=== PATIENT | female | born 1940 | race Caucasian/White ===

== ENCOUNTER 2020-03-27 12:40 | Day surgery (SDC) | payer MEDICARE, OTHER ==
[~2020-03-27] VITALS: Ht 167.6 cm; Wt 97.0 kg
[~2020-03-27 12:40] MED LIST: CYCL10; DICL50ER; DIPH50; GLYB5; GLYB5 PO; HYDCHL25; METF500; METF500 PO; OXYACE5T PO; PROACE100; SIMV10 PO; SIMV5; TRAN4; TRAN4 PO
[2020-03-27 14:11] LABS: BASOPHILS ABSOLUTE AUTO 0.07 K/mm3 (0.00-0.23); BASOPHILS PERCENT AUTO 1 % (0-2); EOSINOPHILS ABSOLUTE AUTO 0.42 K/mm3 (0.00-0.68); EOSINOPHILS PERCENT AUTO 5 % (0-6); Hematocrit 35.1 % (33.0-51.0); Hemoglobin 11.3 g/dL (11.5-16.0); IMMATURE GRAN ABSOLUTE AUTO 0.02 K/mm3 (0.00-0.10); IMMATURE GRAN PERCENT AUTO 0 % (0-1); LYMPHOCYTES ABSOLUTE AUTO 1.88 K/mm3 (0.84-5.20); LYMPHOCYTES PERCENT AUTO 22 % (21-46); MONOCYTES ABSOLUTE AUTO 0.69 K/mm3 (0.16-1.47); MONOCYTES PERCENT AUTO 8 % (4-13); Mean Corpuscular HGB 30.2 pg (26.0-34.0); Mean Corpuscular HGB Conc 32.2 g/dL (31.5-36.5); Mean Corpuscular Volume 94 fL (80-100); Mean Platelet Volume 9.1 fL (9.1-12.4); NEUTROPHILS ABSOLUTE AUTO 5.54 K/mm3 (1.96-9.15); NEUTROPHILS PERCENT AUTO 64 % (41-73); Platelet Count 244 K/mm3 (150-400); RDW Coefficient Variation 13.5 % (11.7-14.2); RDW Standard Deviation 46.9 fL (35.1-46.3); Red Blood Cell Count 3.74 M/mm3 (3.80-5.20); White Blood Cell Count 8.62 K/mm3 (4.00-11.30)
[2020-03-27] MEDS ORDERED: AMLO10 PO (14:22)
[2020-03-27 14:23] LABS: Bun/Creatinine Ratio 10.2 (12.0-20.0); Calcium, Blood 8.7 mg/dL (8.5-10.1); Creatinine, Blood 3.62 mg/dL (0.40-1.00); International Normalized Ratio 1.05; Prothrombin Time Results 11.2 Sec (9.7-11.5)
[2020-03-27] MEDS ORDERED: ZYRTEC10 M2 PO (14:23)
[2020-03-27] MEDS ORDERED: CLOP75 PO (14:23)
[2020-03-27] MEDS ORDERED: DOXA2 PO (14:23)
[2020-03-27] MEDS ORDERED: CYCL10 PO (14:24)
[2020-03-27] MEDS ORDERED: FOLI400 PO (14:24)
[2020-03-27] MEDS ORDERED: FURO40 PO (14:25)
[2020-03-27] MEDS ORDERED: Pravachol40 MG PO (14:27)
[2020-03-27] MEDS ORDERED: ZOLP5 PO (14:28)
[2020-03-27] MEDS ORDERED: ALBU90OI INH (14:28)
[2020-03-27] MEDS ORDERED: OMEP20ER PO (14:29)
[2020-03-27] MEDS ORDERED: SERT50 PO (14:29)
[2020-03-27] MEDS ORDERED: ONDA4 PO (14:29)
[2020-03-27] MEDS ORDERED: METO50ER PO (14:30)
--- NOTE | 2020-03-27 18:02 | NUR ---
1800 PATIENT RETURNED FROM THE [facility] S/P THROMBECTOMY TO THE LEFT ARM FISTULA. POSITION THRILL AND BRUIT TO THE LEFT ARM. CLOTH DOT TO THE ACCESS SITES. NO BLEEDING NOTED. NO PAIN NOTED FROM THE PATIENT. AT THE BEDSIDE AND TRAY SET UP FOR MEAL. PATIENT FEEDING SELF.
--- NOTE | 2020-03-27 18:59 | NUR ---
1845 PATIENT AWAKE AND UP TO DRESS FOR DISCHARGE. REVIEWED DISCHARGE INSTRUCTIONS WITH PATIENT AND HER . ALL QUESTIONS ANSWERED. VVS. PIV REMOVED FROM CHACHA RIGHT AC AND PRESSURE DRESSING APPLIED. IV CATHETER TIP INTACT. GATHERED ALL BELONGINGS. REMOVED PURSE STRING SUTURES FROM THE AV FISTULA SHEATH SITES AND NO BLEEDING NOTED. CLOT DOT DRESSINGS APPLIED AND PATIENT UNDERSTANDS TO MONITOR FOR BLEEDING AND HOLD MANUAL PRESSURE IF BLEEDING OCCURS. DISCHARGED VIA WHEEL CHAIR TO HOME WITH .
== END 2020-03-27 23:40 | disposition home or self-care (01) ==
LOC: MHTC 12:40
PROVIDERS: Radiology Diagnostic Radiology
DX: T82.868A Thrombosis due to vascular prosthetic devices, implants and grafts, initial encounter (principal); Y83.2 Surgical operation with anastomosis, bypass or graft as the cause of abnormal reaction of the patient, or of later complication, without mention of misadventure at the time of the procedure; E11.22 Type 2 diabetes mellitus with diabetic chronic kidney disease; I12.0 Hypertensive chronic kidney disease with stage 5 chronic kidney disease or end stage renal disease; N18.6 End stage renal disease; Z99.2 Dependence on renal dialysis; Z79.4 Long term (current) use of insulin; G20 Parkinson's disease; Z88.0 Allergy status to penicillin; Z88.8 Allergy status to other drugs, medicaments and biological substances; Z79.82 Long term (current) use of aspirin; Z79.899 Other long term (current) drug therapy; Z79.02 Long term (current) use of antithrombotics/antiplatelets
CPT/HCPCS: 36905; 76937; 80048; 85025; 85610; 99152; 99153; C1725; C1757; C1769; C1887; C1894; J1644; J2250; J2997; J3010; J7030; Q9967

== ENCOUNTER 2020-09-23 06:29 | Day surgery (SDC) | payer MEDICARE, OTHER ==
[~2020-09-23] VITALS: Ht 167.6 cm; Wt 90.9 kg
[~2020-09-23 06:29] MED LIST changes: +ALBU90OI INH; +AMLO10 PO; +CLOP75 PO; +CYCL10 PO; +DOXA2 PO; +FOLI400 PO; +FURO40 PO; +METO50ER PO; +OMEP20ER PO; +ONDA4 PO; +Pravachol40 MG PO; +SERT50 PO; +ZOLP5 PO; +ZYRTEC10 M2 PO
[2020-09-23] MEDS ORDERED: HYDROCODONE-AC1 EAC7 PO (07:47)
[2020-09-23] MEDS ORDERED: LEVEMIR100 UNIT/1 SC (07:48)
[2020-09-23] MEDS ORDERED: MECL12.5 PO (07:48)
[2020-09-23] MEDS ORDERED: MELATONIN1010 PO (07:49)
[2020-09-23] MEDS ORDERED: VITAMIN B122500 MC1 PO (07:50)
[2020-09-23] MEDS ORDERED: SODIUM BICARBO325 M1 PO (07:51)
--- NOTE | 2020-09-23 11:33 | NUR ---
LEFT ARM FISTULAGRAM SITES SOFT WITH NO HEMATOMA AND NO PULSATILE BLEEDING AND INTACT DRESSINGS. PT DRINKING PEPSI; CALL LIGHT IN REACH.
--- NOTE | 2020-09-23 12:02 | NUR ---
PURSE STRING SUTURES REMOVED FROM LEFT FISTULA SITE, NO BLEEDING NOTED. CLOTH DOT DRESSING PLACED,
--- NOTE | 2020-09-23 12:18 | NUR ---
DISCHARGE INSTRUCTIONS REVIEWED WITH PT, VERBALIZES UNDERSTANDING OF INSTRUCTIONS. SALINE LOCK REMOVED WITHOUT DIFFICULTY, CATHETER INTACT. PT TO PRIVATE VEHICLE PER W/C.
[2020-10-15] MEDS ORDERED: CALC.25 PO (14:18)
== END 2020-09-23 12:15 | disposition home or self-care (01) ==
LOC: MHTC 06:29
DX: N18.6 End stage renal disease (principal); T82.590A Other mechanical complication of surgically created arteriovenous fistula, initial encounter; T82.868A Thrombosis due to vascular prosthetic devices, implants and grafts, initial encounter; T82.858A Stenosis of other vascular prosthetic devices, implants and grafts, initial encounter; Y83.8 Other surgical procedures as the cause of abnormal reaction of the patient, or of later complication, without mention of misadventure at the time of the procedure; Z99.2 Dependence on renal dialysis; Z88.1 Allergy status to other antibiotic agents; Z88.0 Allergy status to penicillin
CPT/HCPCS: 36905; 76937; 99152; 99153; C1725; C1757; C1769; C1887; C1894; J1644; J2250; J3010; J7030; J7040; Q9967

== ENCOUNTER 2020-09-30 11:08 | Day surgery (SDC) | payer MEDICARE, OTHER ==
[~2020-09-30] VITALS: Ht 165.1 cm; Wt 99.0 kg
[~2020-09-30 11:08] MED LIST changes: +HYDROCODONE-AC1 EAC7 PO; +LEVEMIR100 UNIT/1 SC; +MECL12.5 PO; +MELATONIN1010 PO; +SODIUM BICARBO325 M1 PO; +VITAMIN B122500 MC1 PO
--- NOTE | 2020-09-30 14:38 | NUR ---
PATIENT AWAKE, ABLE TO SIT ON THE SIDE OF THE BED AND EAT LUNCH TRAY. TOLERATED WELL. VVS. NO PAIN NOTED. PATIENT U PAND DRESSED SELF. ALL BELONGINGS GATHERED. PATIENT PIV REMOVED FROM THE RIGHT FOREARM. LEFT ARM FISTULA WITH CLOTH DOTS ON SITES TIMES TWO. THRILL/BRUIT NOTED AND NO BLEEDING NOTED.
[2020-10-15] MEDS ORDERED: CALC.25 PO (14:18)
== END 2020-09-30 15:00 | disposition home or self-care (01) ==
LOC: MHTC 11:08
DX: I12.0 Hypertensive chronic kidney disease with stage 5 chronic kidney disease or end stage renal disease (principal); E11.22 Type 2 diabetes mellitus with diabetic chronic kidney disease; N18.6 End stage renal disease; T82.590A Other mechanical complication of surgically created arteriovenous fistula, initial encounter; T82.868A Thrombosis due to vascular prosthetic devices, implants and grafts, initial encounter; T82.858A Stenosis of other vascular prosthetic devices, implants and grafts, initial encounter; G89.4 Chronic pain syndrome; Y83.8 Other surgical procedures as the cause of abnormal reaction of the patient, or of later complication, without mention of misadventure at the time of the procedure; Z20.822 Contact with and (suspected) exposure to COVID-19; Z99.2 Dependence on renal dialysis; Z88.1 Allergy status to other antibiotic agents; Z88.0 Allergy status to penicillin; Z20.828 Contact with and (suspected) exposure to other viral communicable diseases; Z87.891 Personal history of nicotine dependence
CPT/HCPCS: 0241U; 36415; 36906; 76937; 80048; 85007; 85027; 85610; 99152; 99153; C1725; C1757; C1769; C1876; C1894; J1644; J2250; J3010; J7030; Q9967

== ENCOUNTER 2020-10-16 12:41 | Day surgery (SDC) | payer MEDICARE, OTHER ==
[~2020-10-16] VITALS: Ht 167.6 cm; Wt 90.9 kg
[~2020-10-16 12:41] MED LIST changes: +CALC.25 PO
--- NOTE | 2020-10-16 17:51 | NUR ---
patient arrived to [facility] recovery room. awake and speaking to over the phone. cloth dressings intact to 2 sites on left arm. permacath in place to right upper chest wall dressing D&I. site soft and nontender.
--- NOTE | 2020-10-16 19:07 | NUR ---
PT UP TO BATHROOM. BOTH FISTULAGRAM SITES AND PERMCATH SITES STABLE.
--- NOTE | 2020-10-16 19:18 | NUR ---
PT PURSE STRING SUTURES OUT AND SALINE LOCK REMOVED WITH CATHETER INTACT.
--- NOTE | 2020-10-16 19:24 | NUR ---
DISCHARGE GONE OVER WITH PT, PT IN AGREEMENT WITH PLAN OF CARE. PT TO PRIVATE VEHICLE PER W/C WITH ONE STAFF.
== END 2020-10-16 22:45 | disposition home or self-care (01) ==
LOC: MHTC 12:41
DX: T82.590A Other mechanical complication of surgically created arteriovenous fistula, initial encounter (principal); E11.22 Type 2 diabetes mellitus with diabetic chronic kidney disease; I12.0 Hypertensive chronic kidney disease with stage 5 chronic kidney disease or end stage renal disease; N18.6 End stage renal disease; G20 Parkinson's disease; Z79.4 Long term (current) use of insulin; Z88.0 Allergy status to penicillin; Z88.1 Allergy status to other antibiotic agents; Z88.8 Allergy status to other drugs, medicaments and biological substances
CPT/HCPCS: 36558; 36906; 76937; 99152; 99153; C1725; C1750; C1769; C1876; C1887; C1894; J1644; J2250; J3010; J7030; J7040; J7050; Q9967

== ENCOUNTER 2021-05-29 06:39 | Day surgery (SDC) | payer MEDICARE, OTHER ==
[~2021-05-29] VITALS: Ht 167.6 cm; Wt 96.0 kg
[~2021-05-29 06:39] MED LIST changes: +ANECREAM515 GM TOP; +BICARSIM FORTE125 MG PO
== END 2021-05-29 15:33 | disposition home or self-care (01) ==
LOC: MHTC 06:39
DX: T82.868A Thrombosis due to vascular prosthetic devices, implants and grafts, initial encounter (principal); Y83.2 Surgical operation with anastomosis, bypass or graft as the cause of abnormal reaction of the patient, or of later complication, without mention of misadventure at the time of the procedure; I12.0 Hypertensive chronic kidney disease with stage 5 chronic kidney disease or end stage renal disease; E11.22 Type 2 diabetes mellitus with diabetic chronic kidney disease; N18.6 End stage renal disease; Z99.2 Dependence on renal dialysis; Z87.891 Personal history of nicotine dependence; Z79.02 Long term (current) use of antithrombotics/antiplatelets; Z79.4 Long term (current) use of insulin
CPT/HCPCS: 76937; 82947; 99152; 99153; C1725; C1757; C1769; C1885; C1887; C1894; C2623; J1644; J2250; J2997; J3010; J7030; J7040; J7050; Q9967

== ENCOUNTER 2021-07-03 10:43 | Observation (INO) | payer MEDICARE, OTHER ==
[~2021-07-03] VITALS: Ht 167.6 cm; Wt 98.0 kg
[2021-07-04 05:45] LABS: Bun/Creatinine Ratio 9.5 (12.0-20.0); Calcium, Blood 8.7 mg/dL (8.5-10.1); Creatinine, Blood 4.96 mg/dL (0.40-1.00); Potassium, Blood 4.4 mmol/L (3.5-5.5)
--- NOTE | 2021-07-04 05:45 | NUR ---
SHIFT SUMMARY PATIENT ALERT AND ORIENTED X2. HAD NO COMPLAINTS OF PAIN OR SHORTNESS OF BREATH. NO ACUTE ISSUES NOTED OVERNIGHT. BED IN LOWEST POSITION WITH WHEELS LOCKED AND ALARM ON. CALL LIGHT WITHIN REACH. REPORT GIVEN TO ONCOMING RN.
--- NOTE | 2021-07-04 05:48 | NUR ---
SHIFT SUMMARY PATIENT ARRIVED TO ROOM 304 VIA STRETCHER AT 1900. SHE IS ALERT AND ORIENTED. HAD NO COMPLAINTS OF PAIN OR SHORTNESS OF BREATH. ABLE TO AMBULATE AROUND HER ROOM INDEPENDENTLY. ONLY SCANT BLEEDING NOTED FROM SURGICAL SITE. NO ACUTE ISSUES NOTED OVERNIGHT. CALL LIGHT WITHIN REACH. REPORT GIVEN TO ONCOMING RN.
--- NOTE | 2021-07-04 09:57 | NUR ---
DISCHARGE SUMMARY PT DISCHARGE THIS SHIFT AT 0945. PT SEEN BY DR. LECHUGA THIS AM PRIOR TO DC. PT AAOX4, ABLE TO MAKE NEEDS KNOWN, INDEPENDENT IN ROOM. NO C/O PAIN OR ANY DISCOMFORT PRIOR TO DC, NO ISSUES OR CONCERNS NOTED FROM PT. PT VERBALIZED UNDERSTANDING OF DISCHARGE ORDERS. PT REPORTED THAT SHE IS GOING TO [facility] AFTER DISCHARGE FOR DIALYSIS. PT TO BE TRANSPORTED BY HER . DISCHARGE PAPERWORK GIVEN TO PT UPON DC.
== END 2021-07-04 09:45 | disposition home or self-care (01) ==
LOC: MHTC 10:43 → EDSTATUS 11:16 → RMSDCBED 19:33 → MEDS 19:34
PROVIDERS: ADMIT Internal Medicine
DX: T82.868A Thrombosis due to vascular prosthetic devices, implants and grafts, initial encounter (principal); I12.0 Hypertensive chronic kidney disease with stage 5 chronic kidney disease or end stage renal disease; N18.6 End stage renal disease; E11.22 Type 2 diabetes mellitus with diabetic chronic kidney disease; G20 Parkinson's disease; Z87.891 Personal history of nicotine dependence; Z88.0 Allergy status to penicillin; Z88.8 Allergy status to other drugs, medicaments and biological substances; Z79.4 Long term (current) use of insulin; Z79.899 Other long term (current) drug therapy
CPT/HCPCS: 36415; 76937; 80048; 82947; 94760; 99152; 99153; A9270; C1725; C1753; C1757; C1769; C1887; C1894; J1644; J1815; J2250; J2997; J3010; J7030; J7040; J7050; Q9967

== ENCOUNTER 2021-07-28 11:09 | Day surgery (SDC) | payer MEDICARE, OTHER ==
[~2021-07-28] VITALS: Ht 142.2 cm; Wt 97.7 kg
[2021-07-28 11:52] LABS: BASOPHILS ABSOLUTE AUTO 0.07 K/mm3 (0.00-0.23); BASOPHILS PERCENT AUTO 1 % (0-2); EOSINOPHILS ABSOLUTE AUTO 0.26 K/mm3 (0.00-0.68); EOSINOPHILS PERCENT AUTO 3 % (0-6); Hematocrit 29.6 % (33.0-51.0); Hemoglobin 9.9 g/dL (11.5-16.0); IMMATURE GRAN ABSOLUTE AUTO 0.04 K/mm3 (0.00-0.10); IMMATURE GRAN PERCENT AUTO 1 % (0-1); LYMPHOCYTES ABSOLUTE AUTO 2.05 K/mm3 (0.84-5.20); LYMPHOCYTES PERCENT AUTO 24 % (21-46); MONOCYTES ABSOLUTE AUTO 0.65 K/mm3 (0.16-1.47); MONOCYTES PERCENT AUTO 8 % (4-13); Mean Corpuscular HGB 30.1 pg (26.0-34.0); Mean Corpuscular HGB Conc 33.4 g/dL (31.5-36.5); Mean Corpuscular Volume 90 fL (80-100); Mean Platelet Volume 8.7 fL (9.1-12.4); NEUTROPHILS ABSOLUTE AUTO 5.39 K/mm3 (1.96-9.15); NEUTROPHILS PERCENT AUTO 64 % (41-73); Platelet Count 232 K/mm3 (150-400); RDW Coefficient Variation 12.4 % (11.7-14.2); RDW Standard Deviation 41.1 fL (35.1-46.3); Red Blood Cell Count 3.29 M/mm3 (3.80-5.20); White Blood Cell Count 8.46 K/mm3 (4.00-11.30)
--- NOTE | 2021-07-28 12:00 | NUR ---
FEMORAL SITE UPON CHECKING RIGHT FEMORAL SITE-BLEEDING NOTED-NO HEMATOMA. MANUAL PRESURE HELD FOR ABOUT 5 MIN BY DAVID Kulkarni RN. SHLOMO PATCH AND FEM-STOP REAPLIED. CDI-NO HEMATOMA NOTED.
[2021-07-28 12:05] LABS: International Normalized Ratio 1.04; Prothrombin Time Results 10.9 Sec (9.7-11.5)
[2021-07-28] MEDS ORDERED: Calcium Carbon500 MG PO (12:07)
[2021-07-28] MEDS ORDERED: VITAMIN D5000 UNIT PO (12:08)
[2021-07-28 12:13] LABS: Bun/Creatinine Ratio 12.4 (12.0-20.0); Calcium, Blood 8.9 mg/dL (8.5-10.1); Creatinine, Blood 5.1 mg/dL (0.40-1.00); Potassium, Blood 4.6 mmol/L (3.5-5.5)
--- NOTE | 2021-07-28 14:55 | NUR ---
PT TO RECOVERY ROOM POST PROCEDURE. PT AWAKE AND CONVERSING APPROPRIATELY; DENIES PAIN POST PROCEDURE. MONITOR SB/SR 50-60'S, B/P 153/72, AFEBRILE, SPO2 94% RA. L ARM FISTULA NO SWELLING/HEMATOMA, TENSION SUTURES X [address] WITH TEGADERM DRSG.
--- NOTE | 2021-07-28 16:25 | NUR ---
PROXIMAL RETENTION SUTURES REMOVED, BLOOD SQUIRTING FROM SITE, PRESSURE DRSG APPLIED WITH GAUZE AND COBAN, MANUAL PRESSURE FOR 15 MIN, PT DENIES PAIN OR FEELING LIGHTHEADED. DR LECHUGA NOTIFIED-WILL COME EVALUATE PT.
--- NOTE | 2021-07-28 16:45 | NUR ---
DISTAL RETENTION SUTURES REMOVED WITHOUT ISSUE. ATTEMPTED TO REPLACE PRESSURE DRSG, BUT SITE CONTINUES TO SQUIRT WHEN UNCOVERED; PRESSURE DRSG REAPPLIED AND ADDITIONAL 15 MIN OF MANUAL PRESSURE HELD. PT CONTINUES TO DENY PAIN OR LIGHTHEADINESS. SHE STATES " THIS HAPPENS ONCE A WEEK AT DIALYSIS".
--- NOTE | 2021-07-28 17:03 | NUR ---
REPORT GIVEN TO QUINTEN WHITE; ALL QUESTIONS ANSWERED.
--- NOTE | 2021-07-28 18:51 | NUR ---
DR LECHUGA HERE RE-SUTURED PROXIMAL SITE WITH VICRYL SUTURE PER STERILE TECHNIQUE. LIGHT PRESSURE DRESSING PLACED OVER THE TOP OF SITE TO PREVENT FURTHER BLEEDING. PT TO BE PLACED IN HOUSE OVER NIGHT. UPON PT GETTING UP AND CHANGED INTO NEW GOWN DISTAL SITE BEGAN BLEEDING. DR LECHUGA NOTIFIED AND DISTAL SITE RE-SUTURED PER STERILE TECHNIQUE WITH CLOTH DOT BEING PLACED OVER SITE AFTER COMPLETION. PT CLEANED UP AND NEW GOWN PLACED. PCU NOTIFIED OF PT ARRIVAL. FULL REPORT GIVEN TO NIOCLA SHIPLEY PCU. NO FURTHER QUESTIONS AND BOTH SITES STABLE UPON ARRIVAL TO AND MY EXIT FROM PCU.
[2021-07-29 04:10] LABS: Bun/Creatinine Ratio 12.8 (12.0-20.0); Calcium, Blood 8.4 mg/dL (8.5-10.1); Creatinine, Blood 5.09 mg/dL (0.40-1.00)
--- NOTE | 2021-07-29 05:29 | NUR ---
SHIFT SUMMARY PATIENT ALERT AND ORIENTED T/O SHIFT. VSS. PATIENT REMAINS ON ROOM AIR AND DENIES CHEST PAIN/PRESSURE. INDEPEDENT IN ROOM. USES CALL LIGHT APPROPRIATELY. FISTULA PLACED IN GARETH YESTERDAY, PRESSURE DRESSING REMAINS INTACT WITH NO BLEEDING OVER NIGHT. BRUIT AUSCULTATED. MINIMAL SWELLING AROUND SITE. PLAN IS FOR DIALYSIS IN HOUSE TODAY AND PATIENT TO BE DISCHARGED. WILL REPORT TO DAY SHIFT RN.
--- NOTE | 2021-07-29 07:55 | NUR ---
Pt is awake, but falling asleep quickly in between conversation. ORiented, appropriate in conversation. Vital signs stable. Fistula is wrapped left upper arm, in coban which is clean, dry and intact. Pt has no complaints of pain/discomfort and no needs or concerns vocalized at this time. Gave pt message that dialysis is planned for 9 am today. She expressed surprise that it would be so early.
--- NOTE | 2021-07-29 09:50 | NUR ---
pt is in dialysis at this time; Checked with traffic inspector and scheduled meds were then administered to the patient at this time.
[2021-07-29] MEDS ORDERED: PANT40 PO (13:08)
--- NOTE | 2021-07-29 13:51 | NUR ---
After completing dialysis, pt's fistula on the left arm is noted dressed and clean, dry and intact. She is ready to go home at 1330. She called her to pick her up. discharge instructions were reviewed with her, including discontinuation of omeprazole and new prescription ([facility]ed to [facility]) for pantoprazole. She said that she has a dialysis appointment as outpatient. She was taken out in wheelchair by HENRI rOtiz to waiting private vehicle driven by her .
== END 2021-07-29 13:39 | disposition home or self-care (01) ==
LOC: PCU 11:09 → MHTC 11:09 → PCU 18:37 → MHTC 07-29 13:39
PROVIDERS: Internal Medicine
DX: T82.868A Thrombosis due to vascular prosthetic devices, implants and grafts, initial encounter (principal); I12.0 Hypertensive chronic kidney disease with stage 5 chronic kidney disease or end stage renal disease; E11.22 Type 2 diabetes mellitus with diabetic chronic kidney disease; N18.6 End stage renal disease; E87.1 Hypo-osmolality and hyponatremia; E86.9 Volume depletion, unspecified; D64.9 Anemia, unspecified; Z86.718 Personal history of other venous thrombosis and embolism; G20 Parkinson's disease; N25.81 Secondary hyperparathyroidism of renal origin; Z99.2 Dependence on renal dialysis; Z79.4 Long term (current) use of insulin; Y71.8 Miscellaneous cardiovascular devices associated with adverse incidents, not elsewhere classified; Y83.2 Surgical operation with anastomosis, bypass or graft as the cause of abnormal reaction of the patient, or of later complication, without mention of misadventure at the time of the procedure; Z88.0 Allergy status to penicillin; Z88.8 Allergy status to other drugs, medicaments and biological substances; Z87.891 Personal history of nicotine dependence
CPT/HCPCS: 36415; 36905; 76937; 80048; 82947; 85025; 85610; 99152; 99153; A9270; C1725; C1757; C1769; C1887; C1894; G0257; J1644; J2250; J2997; J3010; J7030; J7040; Q9967

== ENCOUNTER 2021-08-21 23:26 | Inpatient (IN) | payer MEDICARE, OTHER ==
[~2021-08-21] VITALS: Ht 167.6 cm; Wt 96.0 kg
[~2021-08-21 23:26] MED LIST changes: +Calcium Carbon500 MG PO; +PANT40 PO; +VITAMIN D32000 UNI1 PO
[2021-08-21 23:41] LABS: BASOPHILS ABSOLUTE AUTO 0.03 K/mm3 (0.00-0.23); BASOPHILS PERCENT AUTO 0 % (0-2); EOSINOPHILS ABSOLUTE AUTO 0.16 K/mm3 (0.00-0.68); EOSINOPHILS PERCENT AUTO 2 % (0-6); Hematocrit 26.6 % (33.0-51.0); Hemoglobin 8.9 g/dL (11.5-16.0); IMMATURE GRAN ABSOLUTE AUTO 0.04 K/mm3 (0.00-0.10); IMMATURE GRAN PERCENT AUTO 1 % (0-1); LYMPHOCYTES ABSOLUTE AUTO 1.43 K/mm3 (0.84-5.20); LYMPHOCYTES PERCENT AUTO 17 % (21-46); MONOCYTES ABSOLUTE AUTO 0.67 K/mm3 (0.16-1.47); MONOCYTES PERCENT AUTO 8 % (4-13); Mean Corpuscular HGB 30.1 pg (26.0-34.0); Mean Corpuscular HGB Conc 33.5 g/dL (31.5-36.5); Mean Corpuscular Volume 90 fL (80-100); Mean Platelet Volume 8.9 fL (9.1-12.4); NEUTROPHILS ABSOLUTE AUTO 6.35 K/mm3 (1.96-9.15); NEUTROPHILS PERCENT AUTO 73 % (41-73); Platelet Count 203 K/mm3 (150-400); RDW Coefficient Variation 12.6 % (11.7-14.2); RDW Standard Deviation 41.4 fL (35.1-46.3); Red Blood Cell Count 2.96 M/mm3 (3.80-5.20); White Blood Cell Count 8.68 K/mm3 (4.00-11.30)
[2021-08-21 23:56] LABS: Anion Gap 10 mmol/L (6-16); Blood Urea Nitrogen 42 mg/dL (8-24); Bun/Creatinine Ratio 10.4 (12.0-20.0); CO2, Blood 24 mmol/L (21-32); Calcium, Blood 8.8 mg/dL (8.5-10.1); Chloride, Blood 99 mmol/L (98-108); Creatinine, Blood 4.02 mg/dL (0.40-1.00); Glomerular Filtration Rate 11 (60-); Glucose, Blood 208 mg/dL (70-99); Potassium, Blood 3.6 mmol/L (3.5-5.5); Sodium, Blood 133 mmol/L (136-145)
[2021-08-22 00:43] LABS: Troponin I <0.015 ng/mL (0.000-0.040)
[2021-08-22 05:14] LABS: Base Excess Venous -6.8 mmol/L; Bicarbonate Venous 19.3 mmol/L (24.0-30.0); PCO2 Venous 34.2 mmHg (38-42); PO2 Venous 138 mmHg (38-42); pH Blood Venous 7.35 (7.34-7.37)
[2021-08-22 05:34] LABS: Hematocrit 25.9 % (33.0-51.0); Hemoglobin 8.4 g/dL (11.5-16.0); Mean Corpuscular HGB 29.7 pg (26.0-34.0); Mean Corpuscular HGB Conc 32.4 g/dL (31.5-36.5); Mean Corpuscular Volume 92 fL (80-100); Mean Platelet Volume 9.3 fL (9.1-12.4); Platelet Count 181 K/mm3 (150-400); RDW Coefficient Variation 12.6 % (11.7-14.2); RDW Standard Deviation 41.8 fL (35.1-46.3); Red Blood Cell Count 2.83 M/mm3 (3.80-5.20)
[2021-08-22 05:53] LABS: Albumin, Blood 3.5 g/dL (3.4-5.0); Anion Gap 16 mmol/L (6-16); Blood Urea Nitrogen 45 mg/dL (8-24); Bun/Creatinine Ratio 10.8 (12.0-20.0); CO2, Blood 18 mmol/L (21-32); Calcium, Blood 8.6 mg/dL (8.5-10.1); Chloride, Blood 97 mmol/L (98-108); Creatinine, Blood 4.17 mg/dL (0.40-1.00); Glomerular Filtration Rate 10 (60-); Glucose, Blood 379 mg/dL (70-99); Phosphorus, Blood 4.4 mg/dL (2.5-4.9); Potassium, Blood 3.8 mmol/L (3.5-5.5); Sodium, Blood 131 mmol/L (136-145)
[2021-08-22 05:55] LABS: BAND PERCENT MAN 6 % (0-8); BASOPHILS ABSOLUTE MAN 0.08 K/mm3 (0.00-0.23); BASOPHILS PERCENT MAN 1 % (0-2); EOSINOPHILS PERCENT MAN 0 % (0-6); LYMPHOCYTES ABSOLUTE MAN 0.16 K/mm3 (0.84-5.20); LYMPHOCYTES PERCENT MAN 2 % (21-46); MONOCYTES ABSOLUTE MAN 0.16 K/mm3 (0.16-1.47); MONOCYTES PERCENT MAN 2 % (4-13); NEUTROPHILS ABSOLUTE MAN 7.98 K/mm3 (1.96-9.15); SEG NEUTROPHILS PERCENT MAN 89 % (41-73); TOTAL CELLS COUNTED 100
[2021-08-22 09:00] LABS: Anti-Xa UFH, PHA Monitoring <0.10 IU/mL; International Normalized Ratio 1.09; Prothrombin Time Results 11.4 Sec (9.7-11.5)
--- NOTE | 2021-08-22 10:47 | NUR ---
HEPARIN INFUSING THIS RN WENT DOWN TO DIALYSIS AND STARTED THE HEPERIN INFUSING AT 15U/KG/HR AND BOLUS OF 4,500. PATIENT IS A/OX4. VSS. AWAITING FOR PATIENT TO ARRIVE TO UNIT ONCE DONE IN DIALYSIS.
--- NOTE | 2021-08-22 10:49 | NUR ---
CBG THIS RN TOOK PATIENT CBG WITH THE MACHINE IT WAS 318, THE RESULT HAS NOT COME THROUGH YET AND WHEN THIS RN WAS ACCEPTING IT THE CBG MACHINE WENT BLUE AND THEN WENT BACK TO THE WELCOME PAGE. THIS RN WANTED TO MAKE NOTE OF THAT OCCURENCE AND THE CBG LEVEL.
--- NOTE | 2021-08-22 13:00 | NUR ---
ARRIVAL TO PCU PATIENT ARRIVED TO PCU BY PCU BED AT 1225. PATIENT IS ALERT AND ORIENTATED X4. VSS. TELE SR 90. PATIENT REPORTS NO CHEST PAIN/PRESSURE. PATIENT REPORTS SHORTNESS OF BREATH WITH EXERTION. PATIENT REPORTS NO HEADACHE OR NUMBNESS OR TINGLING. PATIENT REPORTS NO CHEST PAIN SINCE LAST EVENING. PATIENT TROP WAS ELEVATED AT 7.78 MD CAYDEN HAILE AND THIS RN CALLED IN A AUTOMOTIVE REPAIR TECHNICIAN CONSULT. MD NAVAS MADE AWARE, AND DUE TO PATIENT NOT ACTIVELY HAVING CHEST PAIN AND HEPERAIN DRIP INFUSING, WE ARE AWAITING FOR THE ECHO RESULTS. HEPERAIN INFUSING AT 15U/KG/HR. PATIENT ATE LUNCH. PATIENT IS SITTING IN BED WITH CALL LIGHT WITHIN REACH AND BED IN LOWEST POSITION. SEE SHIFT ASSESSMENT FOR ASSESSMENT DETAILS. WILL CONTNUE TO MONITOR AND PROVIDE CARE.
--- NOTE | 2021-08-22 17:16 | NUR ---
SHIFT SUMMARY PATIENT A/OX4. VSS. SPO2 >90% ON 3L NC. TELE SR. PATIENT REPORTS NO CHEST PAIN AT THIS TIME. PATIENT LATEST TROP WAS 8.6 AND THIS RN NOTIFED MD NAVAS, AND DOCUMENTED IN THE CRITICAL VALUE NOTIFATION SECTION. CALL LIGHT WITHIN REACH. NO ACUTE CHANGES. WILL CONTNUE TO MONITOR AND PROVIDE CARE UNTIL HAND OFF WITH NEXT SHIFT
[2021-08-23 03:39] LABS: Hematocrit 25.7 % (33.0-51.0); Hemoglobin 8.4 g/dL (11.5-16.0); Mean Corpuscular HGB 29.9 pg (26.0-34.0); Mean Corpuscular HGB Conc 32.7 g/dL (31.5-36.5); Mean Corpuscular Volume 92 fL (80-100); Mean Platelet Volume 9.2 fL (9.1-12.4); Platelet Count 209 K/mm3 (150-400); RDW Coefficient Variation 12.8 % (11.7-14.2); RDW Standard Deviation 42.3 fL (35.1-46.3); Red Blood Cell Count 2.81 M/mm3 (3.80-5.20); White Blood Cell Count 17.22 K/mm3 (4.00-11.30)
[2021-08-23 04:17] LABS: Bun/Creatinine Ratio 12.9 (12.0-20.0); Calcium, Blood 9.2 mg/dL (8.5-10.1); Creatinine, Blood 3.1 mg/dL (0.40-1.00)
--- NOTE | 2021-08-23 05:33 | NUR ---
SHIFT SUMMARY NO ACUTE EVENTS THIS SHIFT. PT ALERT AND ORIENTED X4. C/O 8/10 BACK PAIN AND WRIST CRAMPING. MEDICATED PER EMAR. PT UNPLEASANT WHEN SHE FEELS SHE ISN'T RECEIVING HER PAIN MEDICATIONS ON TIME. OTHERWISE PLEASANT AND COOPERATIVE. BP STABLE. HR NSR 70-80'S. ON 3L NC MAINTAINING SATS OVER 96%. HIGH CBGS>350 THROUGHOUT DAY AND EVENING. PROVIDER AWARE AND PT SWITCHED TO AC/HS AND MEDIUM SLIDING SCALE. PT NPO AFTER MIDNIGHT FOR POSSIBLE AM ANGIO. HEPARIN GTT INFUSING. TROP OF 10.0 IN MORNING DRAW, UP FROM 8.6. PT DENIES CP THROUGHOUT NIGHT. PT IN BED SLEEPING WITH CALL ALARM AT SIDE. WILL CONTINUE TO MONITOR UNTIL REPOT GIVEN TO DAYSHIFT RN
[2021-08-23 12:22] LABS: Influenza A, PCR NEGATIVE (NEGATIVE); Influenza B, PCR NEGATIVE (NEGATIVE); Resp Syncytial Virus, PCR NEGATIVE (NEGATIVE)
[2021-08-23 12:50] LABS: SARS-Cov-2 (COVID-19) PCR, MMC POSITIVE (NEGATIVE)
--- NOTE | 2021-08-23 18:23 | NUR ---
TENTATIVE ANGIO TOMORROW. HEPARIN GTT CONTINUED. HD COMPLETED- TOLERATED WELL. FREQUENT ROUNDS TO ENSURE PT SAFETY. ENCOURAGED FREQUENT REPOSITIONING TO PREVENT PRESSURE ULCERS, PT VERBALIZED UNDERSTANDING. PT IN NO APPARENT DISTRESS. WILL CONTINUE TO MONITOR UNTIL TRANSFER OF CARE TO ONCOMING RN.
--- NOTE | 2021-08-24 07:33 | NUR ---
SHIFT SUMMARY PT ALERT AND ORIENTED X4. ON 3L NC MAINTAINING SATS OVER 92%. BP STABLE. HR NSR. HEPARIN GTT INFUSING. HEPARIN LEVELS LOW IN MORNING LABS, POSSIBLY DUE TO DISTAL OCCLUSIONS. BOLUS GIVEN AND FOREARM IV ACCESS OBTAINED FOR HEPARIN GTT. PT NPO SINCE MIDNIGHT FOR POSSIBLE AM ANGIO. INDEPENDENT TO BATHROOM FOR ADLS. IN BED SLEEPING WITH CALL ALARM AT SIDE
[2021-08-24 14:28] LABS: BASOPHILS ABSOLUTE AUTO 0.03 K/mm3 (0.00-0.23); BASOPHILS PERCENT AUTO 0 % (0-2); EOSINOPHILS ABSOLUTE AUTO 0.01 K/mm3 (0.00-0.68); EOSINOPHILS PERCENT AUTO 0 % (0-6); Hematocrit 24.5 % (33.0-51.0); Hemoglobin 7.9 g/dL (11.5-16.0); IMMATURE GRAN ABSOLUTE AUTO 0.02 K/mm3 (0.00-0.10); IMMATURE GRAN PERCENT AUTO 0 % (0-1); LYMPHOCYTES ABSOLUTE AUTO 1.48 K/mm3 (0.84-5.20); LYMPHOCYTES PERCENT AUTO 21 % (21-46); MONOCYTES ABSOLUTE AUTO 0.63 K/mm3 (0.16-1.47); MONOCYTES PERCENT AUTO 9 % (4-13); Mean Corpuscular HGB 30.2 pg (26.0-34.0); Mean Corpuscular HGB Conc 32.2 g/dL (31.5-36.5); Mean Corpuscular Volume 94 fL (80-100); Mean Platelet Volume 9.7 fL (9.1-12.4); NEUTROPHILS ABSOLUTE AUTO 4.85 K/mm3 (1.96-9.15); NEUTROPHILS PERCENT AUTO 69 % (41-73); Platelet Count 154 K/mm3 (150-400); RDW Coefficient Variation 12.8 % (11.7-14.2); RDW Standard Deviation 44.4 fL (35.1-46.3); Red Blood Cell Count 2.62 M/mm3 (3.80-5.20); White Blood Cell Count 7.02 K/mm3 (4.00-11.30)
[2021-08-24 14:44] LABS: Anion Gap 10 mmol/L (6-16); Blood Urea Nitrogen 53 mg/dL (8-24); Bun/Creatinine Ratio 13.2 (12.0-20.0); CO2, Blood 23 mmol/L (21-32); Calcium, Blood 8.2 mg/dL (8.5-10.1); Chloride, Blood 96 mmol/L (98-108); Creatinine, Blood 4.02 mg/dL (0.40-1.00); Glomerular Filtration Rate 11 (60-); Glucose, Blood 212 mg/dL (70-99); Phosphorus, Blood 3.2 mg/dL (2.5-4.9); Sodium, Blood 129 mmol/L (136-145)
--- NOTE | 2021-08-24 17:00 | NUR ---
END OF SHIFT: PATIENT HAD AN ANGIO TODAY, HEPARIN WAS D/C AT THAT TIME, PLAVIX GIVEN BEFORE TRANSPORT TO AGRONOMY LOCATION MANAGER, ADMINISTERED REST OF MEDS UPON RETURN, 0 STENTS WERE PLACED DUE TO LEFT MAIN ARTERY CLOT REQUIRING CABG. PATIENT WAS ON 1-2L VIA ID, DENIED ANY CHEST PAIN. AFTER ANGIO LABS WERE DRAWN AND CONTACTED DR. NESS, DIALYSIS WAS NEEDED DUE TO ANGIO CONTRAST. 2.6L PULLED AFTER 2 HOURS PATIENT WAS TRANSPORTED BY [facility] VIA GURNEY ON O2 AND HEPARIN DRIP STILL RUNNING, 14U AT 21 ML 75KG DOSING WEIGHT. BLOOD SUGAR DID NOT REQUIRE ANY COVERAGE. RRADIAL SITE WAS SLOWLY LET OUT AND CDI WITH TAGADERM IN PLACE, ALONG WITH ARM BOARD. NO FURTHER QUESTIONS COMMENTS OR CONCERNS, WILL CONTINUE TO MONITOR.
== END 2021-08-24 18:10 | disposition short-term general hospital (02) | DRG 280 ==
LOC: ER 23:26 → ERHOLD 08-22 04:18 → PCU 08-22 04:18
PROVIDERS: Emergency Medicine; Family Medicine; Internal Medicine; Internal Medicine Cardiovascular Disease; Internal Medicine Nephrology; ADMIT Internal Medicine
PROC: 8E0ZXY6 Isolation (ICD-10-PCS; 2021-08-22)
PROC: B2111ZZ Fluoroscopy of Multiple Coronary Arteries using Low Osmolar Contrast (ICD-10-PCS; principal; 2021-08-24)
DX: I21.4 Non-ST elevation (NSTEMI) myocardial infarction (principal); J96.01 Acute respiratory failure with hypoxia; N18.6 End stage renal disease; U07.1 COVID-19; J44.1 Chronic obstructive pulmonary disease with (acute) exacerbation; J81.1 Chronic pulmonary edema; E11.22 Type 2 diabetes mellitus with diabetic chronic kidney disease; Z99.2 Dependence on renal dialysis; K59.09 Other constipation; Z88.8 Allergy status to other drugs, medicaments and biological substances; Z88.1 Allergy status to other antibiotic agents; Z88.0 Allergy status to penicillin; Z86.73 Personal history of transient ischemic attack (TIA), and cerebral infarction without residual deficits; Z90.710 Acquired absence of both cervix and uterus; Z98.890 Other specified postprocedural states
CPT/HCPCS: 0241U; 36415; 71045; 71275; 76937; 80048; 80069; 82803; 82947; 83735; 84484; 85025; 85027; 85347; 85520; 85610; 85730; 93005; 93010; 93306; 93454; 94644; 94760; 96374-59; 96375; 99152; 99285-25; A9270; C1769; C1894; J0881; J1644; J1815; J1940; J2250; J2270; J2405; J2930; J3010; J7030; J7050; Q9967

== ENCOUNTER 2021-10-06 17:38 | Emergency (ER) | payer MEDICARE, OTHER ==
[~2021-10-06] VITALS: Ht 167.6 cm; Wt 88.9 kg
== END 2021-10-06 19:43 | disposition home or self-care (01) ==
LOC: ER 17:38
DX: S50.11XA Contusion of right forearm, initial encounter (principal); E11.9 Type 2 diabetes mellitus without complications; I10 Essential (primary) hypertension; E78.00 Pure hypercholesterolemia, unspecified; Z87.891 Personal history of nicotine dependence; Z88.0 Allergy status to penicillin; Z88.1 Allergy status to other antibiotic agents; Z88.8 Allergy status to other drugs, medicaments and biological substances; Z79.4 Long term (current) use of insulin; Z79.899 Other long term (current) drug therapy; W01.0XXA Fall on same level from slipping, tripping and stumbling without subsequent striking against object, initial encounter
CPT/HCPCS: 73090

== ENCOUNTER → 2021-12-17 | Outpatient (CLI) | payer MEDICARE, OTHER | END | disposition home or self-care (01) | LOC: LAB SHORT 11:26 | DX: Z48.817 Encounter for surgical aftercare following surgery on the skin and subcutaneous tissue (principal); L08.9 Local infection of the skin and subcutaneous tissue, unspecified | CPT/HCPCS: 87070; 87077; 87186; 87205 ==

== ENCOUNTER 2022-01-26 09:58 | Inpatient (IN) | payer MEDICARE, OTHER ==
[~2022-01-26] VITALS: Ht 167.6 cm; Wt 97.0 kg
[2022-01-26 10:43] LABS: BASOPHILS ABSOLUTE AUTO 0.09 K/mm3 (0.00-0.23); BASOPHILS PERCENT AUTO 1 % (0-2); EOSINOPHILS ABSOLUTE AUTO 0.47 K/mm3 (0.00-0.68); EOSINOPHILS PERCENT AUTO 3 % (0-6); Hematocrit 31.8 % (33.0-51.0); Hemoglobin 10.9 g/dL (11.5-16.0); IMMATURE GRAN ABSOLUTE AUTO 0.06 K/mm3 (0.00-0.10); IMMATURE GRAN PERCENT AUTO 0 % (0-1); LYMPHOCYTES ABSOLUTE AUTO 3.26 K/mm3 (0.84-5.20); LYMPHOCYTES PERCENT AUTO 24 % (21-46); MONOCYTES PERCENT AUTO 8 % (4-13); Mean Corpuscular HGB 29.9 pg (26.0-34.0); Mean Corpuscular HGB Conc 34.3 g/dL (31.5-36.5); Mean Corpuscular Volume 87 fL (80-100); Mean Platelet Volume 9.2 fL (9.1-12.4); NEUTROPHILS ABSOLUTE AUTO 8.71 K/mm3 (1.96-9.15); NEUTROPHILS PERCENT AUTO 64 % (41-73); Platelet Count 268 K/mm3 (150-400); RDW Coefficient Variation 12.7 % (11.7-14.2); RDW Standard Deviation 40.6 fL (35.1-46.3); Red Blood Cell Count 3.65 M/mm3 (3.80-5.20); White Blood Cell Count 13.69 K/mm3 (4.00-11.30)
[2022-01-26] MEDS ORDERED: Aspir 8181 MG PO (10:47)
[2022-01-26] MEDS ORDERED: NITR.4SL SL (10:47)
[2022-01-26] MEDS ORDERED: TICA90TA PO (10:48)
[2022-01-26 10:50] LABS: International Normalized Ratio 0.98; Prothrombin Time Results 10.3 Sec (9.7-11.5)
[2022-01-26] MEDS ORDERED: MECL12.5 PO (10:51)
[2022-01-26 10:57] LABS: Albumin, Blood 3.7 g/dL (3.4-5.0); Albumin/Globulin Ratio 1.2 (0.8-1.8); Bilirubin, Total 0.5 mg/dL (0.1-1.0); Bun/Creatinine Ratio 11.7 (12.0-20.0); Calcium, Blood 9.1 mg/dL (8.5-10.1); Creatinine, Blood 3.93 mg/dL (0.40-1.00); Potassium, Blood 4.2 mmol/L (3.5-5.5); Total Protein, Blood 6.7 g/dL (6.4-8.2)
[2022-01-26 11:53] LABS: Influenza A, PCR NEGATIVE (NEGATIVE); Influenza B, PCR NEGATIVE (NEGATIVE); Resp Syncytial Virus, PCR NEGATIVE (NEGATIVE); SARS-Cov-2 (COVID-19) PCR, MMC NEGATIVE (NEGATIVE)
[2022-01-26 17:08] LABS: Hematocrit 32.6 % (33.0-51.0); Hemoglobin 11.2 g/dL (11.5-16.0)
--- NOTE | 2022-01-26 19:39 | NUR ---
CARE ASSUMPTION: PATIENT RESTING IN BED, A&O X4. CHECKED HEMATOMA WITH OFF-GOING RN. DR. EPSTEIN CAME IN AND ALSO ASSESSED SITE. PLAN IS NPO AT BREAKFAST, KEEP ARM WRAPPED IN HOWARD BANDAGE, AND Q4 NEURO CHECKS ON LEFT HAND. PATIENT PLEASANT AND INDEPENDENT IN ROOM. BED LOW WITH CALL LIGHT IN REACH.
--- NOTE | 2022-01-26 19:53 | NUR ---
END OF SHIFT: PATIENT HAS NO CHANGE FROM SHIFT ASSESSMENT. PATIENT HAS BEEN IMPROVING, GARETH HAS NO FURTHER SPREADING, PATIENT WITH DECREASED PAIN. PATIENT ABLE TO EAT UNTIL AFTER BREAKFAST THAN NPO PER DR. WEISS. PATIENT HAS BEEN AFEBRILE, DENIES CHEST PAIN, SOB, OR EXERTIONAL SOB. Q4 NEURO CHECKS ON LEFT HAND ALL UNREMARKABLE AND CONSISTENTLY STRONG PULSE AND NORMAL ROM FOR PATIENT. PATIENT PLEASANT ALERT AND ORIENTED, DR. EPSTEIN ,DR. PAL, DR. CRESPO, AND DR. WEISS ALL HAVE BEEN CONSULTED FOR THIS PATIENT,
[2022-01-27 04:28] LABS: Hematocrit 29.2 % (33.0-51.0); Hemoglobin 9.5 g/dL (11.5-16.0); Mean Corpuscular HGB 29.3 pg (26.0-34.0); Mean Corpuscular HGB Conc 32.5 g/dL (31.5-36.5); Mean Corpuscular Volume 90 fL (80-100); Mean Platelet Volume 9.6 fL (9.1-12.4); Platelet Count 237 K/mm3 (150-400); RDW Coefficient Variation 12.8 % (11.7-14.2); RDW Standard Deviation 42.6 fL (35.1-46.3); Red Blood Cell Count 3.24 M/mm3 (3.80-5.20); White Blood Cell Count 10.81 K/mm3 (4.00-11.30)
[2022-01-27 04:41] LABS: Bun/Creatinine Ratio 11.8 (12.0-20.0); Calcium, Blood 8.8 mg/dL (8.5-10.1); Creatinine, Blood 4.15 mg/dL (0.40-1.00); Potassium, Blood 4.2 mmol/L (3.5-5.5)
--- NOTE | 2022-01-27 06:10 | NUR ---
SHIFT SUMMARY: PATIENT'S Q4 NEURO CHECKS UNREMARKABLE. DENIES NUMBNESS OR TINGLING IN LEFT HAND, PULSES GOOD, MOVEMENT NORMAL FOR PATIENT, AND NO INCREASE IN SWELLING OR BRUISING AT HEMATOMA SITE. VSS WNL ON RA. PATIENT INDEPENDENT IN ROOM AND DOES OCCASIONALLY UNWRAP ARM TO "LOOK AT SWELLING." PATIENT NPO AT 0600 PER ORDERS. BED LOW AND CALL LIGHT IN REACH. WILL CONTINUE TO MONITOR AND REPORT TO ONCOMING RN.
--- NOTE | 2022-01-27 08:23 | NUR ---
Awakens easily. STates having pain in the left arm, near elbow, at 7/10 level. STates pain medications given earlier were helpful. Left arm hematoma visualized at time of bedsidr report, about an hour ago, and no changes per Noc shift RN. Re-wrapped in sophia bandage. Neuro checks are still intact.
--- NOTE | 2022-01-27 09:48 | NUR ---
Dr. Mcmillan here to round on the patient. Telephone call made to Dr. Palacios's office to follow up on consultation. Voicemail message was left to inquire about possible interventions done today. Pt is being kept NPO in anticipation of possible alternative diaysis access placement today.
--- NOTE | 2022-01-27 12:22 | NUR ---
Pt c/o pain in her left arm. Agustin wrap was removed, as she said it was hurting. Spoke with Dr. Reynoso on the phone regarding pt's baby aspirin prescription,and also asked her about removal of AGUSTIN wrap and ice vs. warmth for pain relief. Dr. Reynoso recommeded perhaps loosening the AGUSTIN wrap, but to keep it on, and to use ice for pain. Agustin wrap was replaced with a new, wider AGUSTIN wrap and ice pack was applied to the painful area underneath her upper arm and elbow areas. Pt states that the new AGUSTIN wrap is an improvement in her comfort level. PT continues to be NPO while we wait for Dr. Green's visit to the pt. Spoke with heart center staff Iliana, who will ask Dr. Green if pt will have intervention today; however, he is presently in another case and Iliana has not been able to speak to him yet.
--- NOTE | 2022-01-27 14:00 | NUR ---
Call from Iliana Feldman about half an hour ago. STated that Dr. Green will be here to see the patient within 45 minutes. At this time, the pt has been keeping the arm elevated, iced, and Agustin wrapped. She called me in to show me that the swelling has increased now, growing into the left forearm. The left forearm is soft, and without bruising. Arm was re-wrapped with the wide agustin bandage to cover the entire swollen area, and placed again on the pillows for elevation and ice pack was reapplied.
--- NOTE | 2022-01-27 14:22 | NUR ---
Dr. Reynoso was here, saw the patient and assessed the left arm. Arm re-wrapped in sophia wrap. Dr. Green is here now to see the patient, accompanied by his front end assistant, Kayleigh.
--- NOTE | 2022-01-27 17:41 | NUR ---
Pt returned to PCU 7 from the heart center. Bedside report received from Ondina Schwartz RN. The pt is awake, alert and oriented. Right chest wall permacath is in place, dressing is intact. Some swelling noted around the insertion site. No ecchymosis. Left arm hematoma largely unchanged from before procedure. Two sqaure bandages are in place over the area where I am told in report there was intervention by Dr. Green to balloon an area of narrowing within the fistula. Call to Kingsley plate driller to inform her that the pt now has a permacath for dialysis. She said that the pt will most likely not have dialysis until tomorrow morning.
--- NOTE | 2022-01-28 00:18 | NUR ---
CARE ASSUMPTION: RECEIVED REPORT FROM LISETH MCCARTNEY RN. ASSESSED PATIENT'S LEFT ARM AND NEW PERMACATH SITE. SOME BLEEDING NOTED AT PERMACATH SITE AND WAS MARKED. AT 2049 INTELLECTUAL PROPERTY LAWYER CALLED THIS RN THAT PATIENT HAD BLEEDING AT SITE - 10 MIN MANUAL PRESSURE WAS APPLIED AND MARGINS REMARKED WITH 2099. PATIENT HAD MORE BLEEDING AT 2300 IN THE BOTTOM REGION OF DRESSING - MANUAL PRESSURE APPLIED AND PATIENT REMINDED TO KEEP HOB ELEVATED AND MOVE ARM MINIMALLY. VSS WNL AND NEURO CHECKS WNL. BED LOW WITH CALL LIGHT IN REACH.
[2022-01-28 04:43] LABS: BASOPHILS ABSOLUTE AUTO 0.09 K/mm3 (0.00-0.23); BASOPHILS PERCENT AUTO 1 % (0-2); EOSINOPHILS ABSOLUTE AUTO 0.41 K/mm3 (0.00-0.68); EOSINOPHILS PERCENT AUTO 4 % (0-6); Hemoglobin 9.2 g/dL (11.5-16.0); IMMATURE GRAN ABSOLUTE AUTO 0.04 K/mm3 (0.00-0.10); IMMATURE GRAN PERCENT AUTO 0 % (0-1); LYMPHOCYTES ABSOLUTE AUTO 2.33 K/mm3 (0.84-5.20); LYMPHOCYTES PERCENT AUTO 21 % (21-46); MONOCYTES ABSOLUTE AUTO 0.99 K/mm3 (0.16-1.47); MONOCYTES PERCENT AUTO 9 % (4-13); Mean Corpuscular HGB 29.6 pg (26.0-34.0); Mean Corpuscular HGB Conc 32.9 g/dL (31.5-36.5); Mean Corpuscular Volume 90 fL (80-100); Mean Platelet Volume 9.2 fL (9.1-12.4); NEUTROPHILS ABSOLUTE AUTO 7.29 K/mm3 (1.96-9.15); NEUTROPHILS PERCENT AUTO 65 % (41-73); Platelet Count 244 K/mm3 (150-400); RDW Coefficient Variation 13.1 % (11.7-14.2); Red Blood Cell Count 3.11 M/mm3 (3.80-5.20); White Blood Cell Count 11.15 K/mm3 (4.00-11.30)
--- NOTE | 2022-01-28 04:43 | NUR ---
DRESSING CHANGED AT THIS TIME USING STERILE TECHNIQUE.
[2022-01-28 05:00] LABS: Albumin, Blood 3.2 g/dL (3.4-5.0); Anion Gap 11 mmol/L (6-16); Blood Urea Nitrogen 48 mg/dL (8-24); Bun/Creatinine Ratio 11.1 (12.0-20.0); CO2, Blood 23 mmol/L (21-32); Calcium, Blood 8.8 mg/dL (8.5-10.1); Chloride, Blood 97 mmol/L (98-108); Creatinine, Blood 4.32 mg/dL (0.40-1.00); Glomerular Filtration Rate 10 (60-); Glucose, Blood 158 mg/dL (70-99); Potassium, Blood 4.5 mmol/L (3.5-5.5); Sodium, Blood 131 mmol/L (136-145)
--- NOTE | 2022-01-28 07:21 | NUR ---
Pt is alert, oriented and pleasant in conversation this morning. She states that her left arm is more painful this morning. She was given pain medication about an hour ago, and it is now tolerable. Left arm unwrapped and assessed together with noc shift RN Kathleen. Lare purple discoloration and very large amount of swelling and firm area on the medial aspect. Pt also has some minimal swelling on the left wrist, below the area of the sophia wrap. Fingers are pink, warm and without numbness/tingling. Arm wrapped in sophia wrap from wrist to axilla, elevated on pillow and ice pack applied. Spoke with Leyla the outsole skiver and pt will have dialysis today.
--- NOTE | 2022-01-28 08:39 | NUR ---
Pt is sitting on side of bed, finishing breakfast. She appears to be quite uncomfortable, stating that he left arm is very painful. It does appear more swollen than 24 hours ago. The sophia wrap is still intact. Her arm was elevated on 2 pillows and surrounded by 3 ice packs at this time. Call to Dr. Mcmillan to inquire if there is anything else that we can do for the pt. New order rec'd for IV fentanyl.
--- NOTE | 2022-01-28 09:31 | NUR ---
Leaking blood noted from the suture above the permacath, right chest wall. Blood was leaking from underneath the tegederm CHG dressing. Dressing was removed and sterile gauze placed with exudry and tegederm dressing over it on the suture site. Biopatch was applied to the permacath insertion site and tegederm CHG dressing covering all. Dr. Cortez, metallurgical or materials technician was rounding at time of dressing change. Pt was taken to dialysis at this time. She states that her left arm is burning but that the pain has decreased to 3/10 from 5/10.
--- NOTE | 2022-01-28 11:50 | NUR ---
Pt is still in dialysis.
--- NOTE | 2022-01-28 15:50 | NUR ---
Purse string sutures were removed from two locations on the left upper arm. Cleased with betadine and covered with cloth dots afterwards. Pt denies pain.
--- NOTE | 2022-01-28 17:06 | NUR ---
Pt c/o severe pain in her left arm this morning, relief with IV fentanyl, elevation and ice packs to affected area before she went to Dialysis today. The left arm was more swollen this morning than it was 24 hours earlier, but had no increase in swelling by the end of this shift. The arm was kept wrapped in Agustin wrap throughout the day, with a 45 minutet break at 1600 today per pt request. Sutures on the left upper arm were removed today per Dr. Green's orders. Her pain is much better controlled this evening. She also c/o back pain, relief with muscle relaxant this afternoon. She is eating and drinking with a good appetite, and independently ambulating to the toilet in her room. She is eager to go home, which she hopes is tomorrow. I called her Jason this afternoon to give him an update on the pt's condition and ongoing care.
--- NOTE | 2022-01-29 04:05 | NUR ---
SHIFT SUMMARY PT RESTED WELL THROUGH THE NIGHT. ALERT AND ORIENTED, ABLE TO MAKE NEEDS KNOWN. COOPERATIVE WITH PLAN OF CARE. TELE READS NSR. NO C/O CHEST PAIN. O2 SATS >95% ON ROOM AIR. VOIDING INDEPENDENTLY TO BATHROOM. NO BM. L ARM HEMATOMA IS LARGE, ICE PACKS AND HOWARD WRAP IN PLACE. THIS RN MADE NEW MARKINGS ON EDGE OF HEMATOMA TO MONITOR FOR WORSENING SWELLING. NO CHANGES THROUGHOUT NIGHT. MUSCLE RELAXER AND PAIN MED GIVEN. SEE EMAR. VSS. CALL LIGHT WITHIN REACH, BED IN LOWEST POSITION. WILL CONTINUE TO MONITOR.
[2022-01-29 04:25] LABS: BASOPHILS ABSOLUTE AUTO 0.08 K/mm3 (0.00-0.23); BASOPHILS PERCENT AUTO 1 % (0-2); EOSINOPHILS ABSOLUTE AUTO 0.27 K/mm3 (0.00-0.68); EOSINOPHILS PERCENT AUTO 3 % (0-6); Hematocrit 25.5 % (33.0-51.0); Hemoglobin 8.3 g/dL (11.5-16.0); IMMATURE GRAN ABSOLUTE AUTO 0.05 K/mm3 (0.00-0.10); IMMATURE GRAN PERCENT AUTO 1 % (0-1); LYMPHOCYTES ABSOLUTE AUTO 2.65 K/mm3 (0.84-5.20); LYMPHOCYTES PERCENT AUTO 30 % (21-46); MONOCYTES ABSOLUTE AUTO 1.08 K/mm3 (0.16-1.47); MONOCYTES PERCENT AUTO 12 % (4-13); Mean Corpuscular HGB 29.5 pg (26.0-34.0); Mean Corpuscular HGB Conc 32.5 g/dL (31.5-36.5); Mean Corpuscular Volume 91 fL (80-100); Mean Platelet Volume 9.2 fL (9.1-12.4); NEUTROPHILS ABSOLUTE AUTO 4.75 K/mm3 (1.96-9.15); NEUTROPHILS PERCENT AUTO 54 % (41-73); Platelet Count 211 K/mm3 (150-400); RDW Coefficient Variation 13.1 % (11.7-14.2); RDW Standard Deviation 43.3 fL (35.1-46.3); Red Blood Cell Count 2.81 M/mm3 (3.80-5.20); White Blood Cell Count 8.88 K/mm3 (4.00-11.30)
[2022-01-29 04:49] LABS: Anion Gap 8 mmol/L (6-16); Blood Urea Nitrogen 31 mg/dL (8-24); Bun/Creatinine Ratio 9.3 (12.0-20.0); CO2, Blood 29 mmol/L (21-32); Calcium, Blood 9.1 mg/dL (8.5-10.1); Chloride, Blood 94 mmol/L (98-108); Creatinine, Blood 3.33 mg/dL (0.40-1.00); Glomerular Filtration Rate 14 (60-); Glucose, Blood 248 mg/dL (70-99); Phosphorus, Blood 4.3 mg/dL (2.5-4.9); Potassium, Blood 4.3 mmol/L (3.5-5.5); Sodium, Blood 131 mmol/L (136-145)
--- NOTE | 2022-01-29 08:11 | NUR ---
Dialysis catheter dressing noted saturated with serosanginous drainage. Call to Wolf Kendall to ask about what kind of dressing to put over the suture site, which is just superior to the right chest wall permacath, and is still seeping bright red blood. Both of the sites were covered with the above mentioned dressing. Old dressing was removed, area cleansed with chlorohexidine, and new dressing applied using sterile technique. Skin prep applied. Melonie patch was applied over the suture site per Wolf's suggestion, and biopatch placed over the permacath insertion site. All was covered with a tegederm CHg dressing. Pt tolerated it well.
--- NOTE | 2022-01-29 10:44 | NUR ---
Dr. Green has told me that the pt is clear for discharge from his standpoint.
--- NOTE | 2022-01-29 10:45 | NUR ---
Call to Dr. Lopez's office this morning. Dr. Reynoso says that the pt is clear for discharge from her standpoint.
--- NOTE | 2022-01-29 10:56 | NUR ---
Compression sock applied to the left arm for comfort and to promote venous return. The pt is sitting up on the side of the bed, having eaten breakfast and talked with the school child care attendant regarding dishcarge pending today. Right chest wall dressing remains clean, dry and intact.
--- NOTE | 2022-01-29 12:13 | NUR ---
Discharge instructions were reviewed with the patient. She is waiting for her to come and pick her up to go home. Right chest wall dressing remains clean, dry and intact. Compression stocking in place on the left arm, and pt states that it is comfortable.
== END 2022-01-29 12:36 | disposition home or self-care (01) | DRG 252 ==
LOC: ER 09:58 → PCU 11:54 → ERHOLD 11:54 → PCU 16:11
PROVIDERS: Emergency Medicine; Family Medicine; Nurse Practitioner Acute Care; Surgery; ADMIT Internal Medicine
PROC: 03783ZZ Dilation of Left Brachial Artery, Percutaneous Approach (ICD-10-PCS; principal; 2022-01-27)
PROC: 057C3ZZ Dilation of Left Basilic Vein, Percutaneous Approach (ICD-10-PCS; 2022-01-27)
PROC: B51WYZZ Fluoroscopy of Dialysis Shunt/Fistula using Other Contrast (ICD-10-PCS; 2022-01-27)
PROC: 0JH63WZ Insertion of Totally Implantable Vascular Access Device into Chest Subcutaneous Tissue and Fascia, Percutaneous Approach (ICD-10-PCS; 2022-01-27)
PROC: 02HV33Z Insertion of Infusion Device into Superior Vena Cava, Percutaneous Approach (ICD-10-PCS; 2022-01-27)
PROC: B518YZA Fluoroscopy of Superior Vena Cava using Other Contrast, Guidance (ICD-10-PCS; 2022-01-27)
PROC: 5A1D70Z Performance of Urinary Filtration, Intermittent, Less than 6 Hours Per Day (ICD-10-PCS; 2022-01-29)
DX: T82.838A Hemorrhage due to vascular prosthetic devices, implants and grafts, initial encounter (principal); N18.6 End stage renal disease; I12.0 Hypertensive chronic kidney disease with stage 5 chronic kidney disease or end stage renal disease; E87.1 Hypo-osmolality and hyponatremia; Z66 Do not resuscitate; D50.0 Iron deficiency anemia secondary to blood loss (chronic); I25.10 Atherosclerotic heart disease of native coronary artery without angina pectoris; K21.9 Gastro-esophageal reflux disease without esophagitis; F32.A Depression, unspecified; Z20.822 Contact with and (suspected) exposure to COVID-19; J44.9 Chronic obstructive pulmonary disease, unspecified; E11.22 Type 2 diabetes mellitus with diabetic chronic kidney disease; E78.5 Hyperlipidemia, unspecified; J30.1 Allergic rhinitis due to pollen; M19.90 Unspecified osteoarthritis, unspecified site; D63.1 Anemia in chronic kidney disease; Z99.2 Dependence on renal dialysis; Z86.73 Personal history of transient ischemic attack (TIA), and cerebral infarction without residual deficits; Z98.51 Tubal ligation status; Z98.890 Other specified postprocedural states; Z87.891 Personal history of nicotine dependence; Z95.5 Presence of coronary angioplasty implant and graft; Z88.0 Allergy status to penicillin; Z88.8 Allergy status to other drugs, medicaments and biological substances; Z79.899 Other long term (current) drug therapy; Z79.82 Long term (current) use of aspirin; Z79.51 Long term (current) use of inhaled steroids; Z79.4 Long term (current) use of insulin; Z79.891 Long term (current) use of opiate analgesic; Z88.1 Allergy status to other antibiotic agents; Y71.2 Prosthetic and other implants, materials and accessory cardiovascular devices associated with adverse incidents; Z79.02 Long term (current) use of antithrombotics/antiplatelets
CPT/HCPCS: 0241U; 36415; 36558; 36901; 36902; 75860; 76937; 77001; 80048; 80053; 80069; 82947; 85014; 85018; 85025; 85027; 85610; 85730; 93990; 94760; 96374; 96375; 99152; 99153; 99285-25; A9270; C1725; C1750; C1769; C1887; C1894; J1170; J1270; J1644; J1815; J2250; J2405; J3010; J7030; J7040; Q5106; Q9967

== ENCOUNTER 2022-03-02 19:40 | Inpatient (IN) | payer MEDICARE, OTHER ==
[~2022-03-02] VITALS: Ht 167.6 cm; Wt 95.8 kg
[~2022-03-02 19:40] MED LIST changes: +Aspir 8181 MG PO; +NITR.4SL SL; +TICA90TA PO; -VITAMIN D32000 UNI1 PO; +VITAMIN D5000 UNIT PO
[2022-03-02 19:59] LABS: BASOPHILS ABSOLUTE AUTO 0.07 K/mm3 (0.00-0.23); BASOPHILS PERCENT AUTO 0 % (0-2); EOSINOPHILS ABSOLUTE AUTO 0.33 K/mm3 (0.00-0.68); EOSINOPHILS PERCENT AUTO 2 % (0-6); Hematocrit 29.1 % (33.0-51.0); Hemoglobin 9.9 g/dL (11.5-16.0); IMMATURE GRAN ABSOLUTE AUTO 0.06 K/mm3 (0.00-0.10); IMMATURE GRAN PERCENT AUTO 0 % (0-1); LYMPHOCYTES ABSOLUTE AUTO 2.39 K/mm3 (0.84-5.20); LYMPHOCYTES PERCENT AUTO 15 % (21-46); MONOCYTES ABSOLUTE AUTO 1.06 K/mm3 (0.16-1.47); MONOCYTES PERCENT AUTO 7 % (4-13); Mean Corpuscular HGB 29.7 pg (26.0-34.0); Mean Corpuscular Volume 87 fL (80-100); Mean Platelet Volume 8.9 fL (9.1-12.4); NEUTROPHILS ABSOLUTE AUTO 12.17 K/mm3 (1.96-9.15); NEUTROPHILS PERCENT AUTO 76 % (41-73); Platelet Count 238 K/mm3 (150-400); RDW Coefficient Variation 13.5 % (11.7-14.2); RDW Standard Deviation 43.1 fL (35.1-46.3); Red Blood Cell Count 3.33 M/mm3 (3.80-5.20); White Blood Cell Count 16.08 K/mm3 (4.00-11.30)
[2022-03-02 20:18] LABS: Albumin, Blood 3.6 g/dL (3.4-5.0); Albumin/Globulin Ratio 1.2 (0.8-1.8); Bilirubin, Total 0.5 mg/dL (0.1-1.0); Bun/Creatinine Ratio 9.9 (12.0-20.0); Calcium, Blood 9.2 mg/dL (8.5-10.1); Creatinine, Blood 3.82 mg/dL (0.40-1.00); Globulin, Blood 3.1 g/dL (2.2-4.0); Potassium, Blood 4.5 mmol/L (3.5-5.5); Total Protein, Blood 6.7 g/dL (6.4-8.2)
[2022-03-02] MEDS ORDERED: CALC.25 PO (20:20)
[2022-03-02] MEDS ORDERED: DOXA2 PO (20:22)
[2022-03-02] MEDS ORDERED: FOLIC ACID0.4 MG PO (20:23)
[2022-03-02] MEDS ORDERED: MECL12.5 PO (20:25)
[2022-03-02] MEDS ORDERED: OMEP20ER PO (20:25)
[2022-03-02] MEDS ORDERED: PRAVASTATIN SOD40 MG PO (20:26)
[2022-03-02] MEDS ORDERED: SODBIC650 PO (20:27)
[2022-03-02] MEDS ORDERED: SIME80CH PO (20:29)
[2022-03-02 20:46] LABS: Source, Urine Clean Catch
[2022-03-02 20:55] LABS: Influenza A, PCR NEGATIVE (NEGATIVE); Influenza B, PCR NEGATIVE (NEGATIVE); Resp Syncytial Virus, PCR NEGATIVE (NEGATIVE); SARS-Cov-2 (COVID-19) PCR, MMC NEGATIVE (NEGATIVE)
[2022-03-02 21:10] LABS: Appearance, Urine Clear (Clear); Bilirubin, Urine Neg (Neg); Blood, Urine 2+ (Neg); Color, Urine Yellow (P-Yellow); Glucose Qualitative, Urine 3+ (Neg); Ketones, Urine Neg (Neg); Leukocyte Esterase, Urine Neg (Neg); Nitrite, Urine Neg (Neg); Protein, Urine 3+ (Neg); Urobilinogen, Urine NORM (Normal)
[2022-03-02 21:21] LABS: Bacteria Few /hpf; Squamous Epithelial Cells Few /hpf (Few); White Blood Cells, Urine 0-2 /hpf (0-5)
[2022-03-03 02:15] LABS: BASOPHILS ABSOLUTE AUTO 0.04 K/mm3 (0.00-0.23); BASOPHILS PERCENT AUTO 0 % (0-2); EOSINOPHILS ABSOLUTE AUTO 0.04 K/mm3 (0.00-0.68); EOSINOPHILS PERCENT AUTO 0 % (0-6); Hematocrit 24.9 % (33.0-51.0); Hemoglobin 8.4 g/dL (11.5-16.0); IMMATURE GRAN ABSOLUTE AUTO 0.06 K/mm3 (0.00-0.10); IMMATURE GRAN PERCENT AUTO 1 % (0-1); LYMPHOCYTES ABSOLUTE AUTO 1.24 K/mm3 (0.84-5.20); LYMPHOCYTES PERCENT AUTO 10 % (21-46); MONOCYTES ABSOLUTE AUTO 0.98 K/mm3 (0.16-1.47); MONOCYTES PERCENT AUTO 8 % (4-13); Mean Corpuscular HGB 29.9 pg (26.0-34.0); Mean Corpuscular HGB Conc 33.7 g/dL (31.5-36.5); Mean Corpuscular Volume 89 fL (80-100); Mean Platelet Volume 8.8 fL (9.1-12.4); NEUTROPHILS ABSOLUTE AUTO 10.44 K/mm3 (1.96-9.15); NEUTROPHILS PERCENT AUTO 82 % (41-73); Platelet Count 211 K/mm3 (150-400); RDW Coefficient Variation 13.4 % (11.7-14.2); RDW Standard Deviation 43.4 fL (35.1-46.3); Red Blood Cell Count 2.81 M/mm3 (3.80-5.20)
[2022-03-03 02:32] LABS: Bun/Creatinine Ratio 10.3 (12.0-20.0); Calcium, Blood 8.5 mg/dL (8.5-10.1); Creatinine, Blood 3.79 mg/dL (0.40-1.00); Potassium, Blood 4.8 mmol/L (3.5-5.5)
--- NOTE | 2022-03-03 05:45 | NUR ---
SHIFT SUMMARY PATIENT ALERT AND ORIENTED X4. MEDICATED PER EMAR FOR PAIN. IS DYSPNIC UPON EXERTION. REQUIRED O2 OVERNIGHT WHILE SLEEPING TO MAINTAIN O2 SATURATION >90%. NO OTHER ISSUES NOTED OVERNIGHT. CALL LIGHT WITHIN REACH. REPORT GIVEN TO ONCOMING RN.
[2022-03-03] MEDS ORDERED: Calcium Carbon500 MG PO (05:55)
[2022-03-03] MEDS ORDERED: THERA-D2000 UNIT PO (05:56)
--- NOTE | 2022-03-03 11:11 | NUR ---
LATE ENTRY 0915: PT TO DIALYSIS VIA BED TRANSFER.
--- NOTE | 2022-03-03 12:21 | NUR ---
VASCULAR ACCESS PT HAS A MEDI PORT R UPPER CHEST WALL, DRESSING CD&I AND AN AV FISTULA IN L UPPER ARM.
--- NOTE | 2022-03-03 18:22 | NUR ---
SHIFT SUMMARY A&O X 4. VSS. INDEPENDENT IN ROOM. WENT TO DIALYSIS THIS MORNING. PLAN IS FOR DIALYSIS AGAIN TOMORROW. SHE HAS AN AV FISTULA IN L UPPER ARM AND A TEMPORARY DIALYSIS CATHETER IN HER R CHEST WALL. SHE HAS BEEN ON RA AND SATTING >90%. IS GETTING IV ANTIBIOTICS FOR HER DIAGNOSIS OF PNEUMONIA. MEDICATED ONCE FOR BACK PAIN WITH MD ORDERED NORCO. PLAN IS FOR HER TO GO HOME ONCE CLINICALLY STABLE.
--- NOTE | 2022-03-04 04:18 | NUR ---
SHIFT SUMMARY: A/OX4, ADLIB IN ROOM AND INDEPENDENT REPOSITIONING IN BED. PT DECLINED USE OF CPAP TONIGHT AND REQUESTED O2 NASAL CANNULA INSTEAD. RESPIRATORY APPLIED 2L O2 NASAL CANNULA, PT SATING 90% > THROUGHOUT THE NIGHT. OTHERWISE NO ACUTE CHANGES THROUGHOUT THE NIGHT. PT REPORTS FEELING STEADY ON FEET WITH NO DIZZINESS, PATIENT AGREES TO REPORT IF DIZZINESS, INCREASED WEAKNESS, OR INSTABILITY OCCURS.
[2022-03-04 06:27] LABS: Anion Gap 5 mmol/L (6-16); Blood Urea Nitrogen 24 mg/dL (8-24); Bun/Creatinine Ratio 8.7 (12.0-20.0); CO2, Blood 28 mmol/L (21-32); Calcium, Blood 9.1 mg/dL (8.5-10.1); Chloride, Blood 100 mmol/L (98-108); Creatinine, Blood 2.75 mg/dL (0.40-1.00); Glomerular Filtration Rate 17 (60-); Glucose, Blood 164 mg/dL (70-99); Phosphorus, Blood 3.5 mg/dL (2.5-4.9); Sodium, Blood 133 mmol/L (136-145)
[2022-03-04 08:03] LABS: BASOPHILS ABSOLUTE AUTO 0.05 K/mm3 (0.00-0.23); BASOPHILS PERCENT AUTO 1 % (0-2); EOSINOPHILS ABSOLUTE AUTO 0.32 K/mm3 (0.00-0.68); EOSINOPHILS PERCENT AUTO 4 % (0-6); Hematocrit 28.7 % (33.0-51.0); Hemoglobin 9.3 g/dL (11.5-16.0); IMMATURE GRAN ABSOLUTE AUTO 0.03 K/mm3 (0.00-0.10); IMMATURE GRAN PERCENT AUTO 0 % (0-1); LYMPHOCYTES ABSOLUTE AUTO 1.55 K/mm3 (0.84-5.20); LYMPHOCYTES PERCENT AUTO 19 % (21-46); MONOCYTES PERCENT AUTO 11 % (4-13); Mean Corpuscular HGB 29.4 pg (26.0-34.0); Mean Corpuscular HGB Conc 32.4 g/dL (31.5-36.5); Mean Corpuscular Volume 91 fL (80-100); NEUTROPHILS ABSOLUTE AUTO 5.13 K/mm3 (1.96-9.15); NEUTROPHILS PERCENT AUTO 64 % (41-73); Platelet Count 235 K/mm3 (150-400); RDW Coefficient Variation 13.2 % (11.7-14.2); RDW Standard Deviation 43.9 fL (35.1-46.3); Red Blood Cell Count 3.16 M/mm3 (3.80-5.20); White Blood Cell Count 7.98 K/mm3 (4.00-11.30)
--- NOTE | 2022-03-04 13:10 | NUR ---
ÓSCAR HAD DIALYSIS TODAY. OPEN HEARTH FURNACE OPERATOR HELPER REPORTS THEY REMOVED 3.5 LITERS OF FLUID. ÓSCAR TOLERATED PROCEDURE WELL. SHE WAS RETURNED TO MEDICAL FLOOR SAFELY VIA A MEDICAL BED, ACCOMPANIED BY MEDICAL AUTO PARTS MANAGER AND RN.
--- NOTE | 2022-03-04 19:09 | NUR ---
SHIFT SUMMARY ÓSCAR HAD DIALYSIS TODAY, TOOK OFF 3.5 LITERS OF FLUID. PT REPORTS SHE CAN BREATHE BETTER, AND CONTINUES TO AMBULATE IN HER ROOM WITH A STEADY GAIT. DENIES CHEST PAIN. LEFT AV FISTULA WITH A POSITIVE BRUIT AND THRILL. IV ACCESS ON THE RFA. DIALYSIS PORT TO THE RIGHT CHEST WALL. ROOM AIR. PT STATES SHE WILL ATTEMPT TO WEAR HER CPAP THIS EVENING IN THE HOSPITAL. REPORT GIVEN TO ONCOMING NIGHT NURSE.
--- NOTE | 2022-03-05 04:03 | NUR ---
SHIFT SUMMARY: A/OX4, ADLIB IN ROOM, INDEPENDENT REPOSITIONING IN BED. PT DECLINES TO WEAR CPAP THROUGHOUT THE NIGHT, REQUESTING USE OF O2 VIA NASAL CANNULA WHILE SLEEPING. O2 REMAINS ON 2L NASAL CANNULA AT REST, PT SATING ABOVE 90%. LUNGS SOUND CLEAR,SLIGHTLY DIMINISHED BUT SIGNIFICANTLY LESS CONGESTED. PRN PAIN MEDICATION ADMINISTERED DUE TO CHRONIC BACK PAIN- PROVIDING ADEQUATE PAIN RELIEF. PT CONTINUES TO CALL APPROPRIATELY, BED REMAINS IN LOW POSITION, CALL SINHA AND BELONGINGS IN REACH.
--- NOTE | 2022-03-05 13:38 | NUR ---
DISCHARGE 1:38PM PATIENT IS DISCHARGED THIS AFTERNOON. IV WAS REMOVED. PATIENT DISCHARGE INSTRUCTIONS, FOLLOW UP APPTS AND PATIENT EDUCATION WERE REVIEWED. IS TRANSPORTING PATIENT TO [facility]. NEGATIVE CUTTER BROUGHT PATIENT BY DOWN TO MEET THE PATIENTS .
== END 2022-03-05 13:43 | disposition home or self-care (01) | DRG 871 ==
LOC: ER 19:40 → MEDS 22:34
PROVIDERS: Emergency Medicine; Internal Medicine; Internal Medicine Nephrology; ADMIT Family Medicine
PROC: 3E03329 Introduction of Other Anti-infective into Peripheral Vein, Percutaneous Approach (ICD-10-PCS; 2022-03-02)
PROC: 5A1D70Z Performance of Urinary Filtration, Intermittent, Less than 6 Hours Per Day (ICD-10-PCS; principal; 2022-03-03)
DX: A41.9 Sepsis, unspecified organism (principal); I50.33 Acute on chronic diastolic (congestive) heart failure; J18.9 Pneumonia, unspecified organism; N18.6 End stage renal disease; I13.2 Hypertensive heart and chronic kidney disease with heart failure and with stage 5 chronic kidney disease, or end stage renal disease; E87.1 Hypo-osmolality and hyponatremia; E87.2 Acidosis; J44.0 Chronic obstructive pulmonary disease with (acute) lower respiratory infection; Z66 Do not resuscitate; Z20.822 Contact with and (suspected) exposure to COVID-19; R07.89 Other chest pain; I25.10 Atherosclerotic heart disease of native coronary artery without angina pectoris; E11.22 Type 2 diabetes mellitus with diabetic chronic kidney disease; D63.1 Anemia in chronic kidney disease; K21.9 Gastro-esophageal reflux disease without esophagitis; F32.A Depression, unspecified; G47.33 Obstructive sleep apnea (adult) (pediatric); M19.90 Unspecified osteoarthritis, unspecified site; Z95.5 Presence of coronary angioplasty implant and graft; Z99.2 Dependence on renal dialysis; Z86.73 Personal history of transient ischemic attack (TIA), and cerebral infarction without residual deficits; Z98.890 Other specified postprocedural states; Z98.51 Tubal ligation status; Z95.828 Presence of other vascular implants and grafts; Z88.0 Allergy status to penicillin; Z88.8 Allergy status to other drugs, medicaments and biological substances; Z79.51 Long term (current) use of inhaled steroids; Z79.899 Other long term (current) drug therapy; Z79.01 Long term (current) use of anticoagulants; Z79.4 Long term (current) use of insulin; Z91.15 Patient's noncompliance with renal dialysis; Z88.1 Allergy status to other antibiotic agents; Z87.891 Personal history of nicotine dependence
CPT/HCPCS: 0241U; 36415; 71045; 80048; 80053; 80069; 81001; 82947; 83605; 83880; 84145; 84484; 85025; 87040; 93005; 93010; 94761; 94762; 96374; 99285-25; A9270; J0456; J0696; J1815; J3370; J7050; J7060; Q5106

== ENCOUNTER 2022-07-06 10:04 | Emergency (ER) | payer MEDICARE, OTHER ==
[~2022-07-06] VITALS: Ht 167.6 cm; Wt 90.7 kg
[~2022-07-06 10:04] MED LIST changes: +FOLIC ACID0.4 MG PO; +PRAVASTATIN SOD40 MG PO; +SIME80CH PO; +SODBIC650 PO; +THERA-D2000 UNIT PO
[2022-07-06 11:48] LABS: BASOPHILS ABSOLUTE AUTO 0.12 K/mm3 (0.00-0.23); BASOPHILS PERCENT AUTO 1 % (0-2); EOSINOPHILS PERCENT AUTO 4 % (0-6); Hemoglobin 13.5 g/dL (11.5-16.0); IMMATURE GRAN PERCENT AUTO 1 % (0-1); LYMPHOCYTES ABSOLUTE AUTO 2.06 K/mm3 (0.84-5.20); LYMPHOCYTES PERCENT AUTO 12 % (21-46); MONOCYTES ABSOLUTE AUTO 1.38 K/mm3 (0.16-1.47); MONOCYTES PERCENT AUTO 8 % (4-13); Mean Corpuscular HGB 29.7 pg (26.0-34.0); Mean Corpuscular HGB Conc 34.6 g/dL (31.5-36.5); Mean Corpuscular Volume 86 fL (80-100); NEUTROPHILS ABSOLUTE AUTO 12.61 K/mm3 (1.96-9.15); NEUTROPHILS PERCENT AUTO 74 % (41-73); Platelet Count 326 K/mm3 (150-400); RDW Coefficient Variation 12.9 % (11.7-14.2); RDW Standard Deviation 40.5 fL (35.1-46.3); Red Blood Cell Count 4.55 M/mm3 (3.80-5.20); White Blood Cell Count 17.07 K/mm3 (4.00-11.30)
[2022-07-06 12:16] LABS: Albumin, Blood 3.4 g/dL (3.4-5.0); Albumin/Globulin Ratio 0.9 (0.8-1.8); Bilirubin, Total 0.4 mg/dL (0.1-1.0); Bun/Creatinine Ratio 11.9 (12.0-20.0); Calcium, Blood 9.1 mg/dL (8.5-10.1); Creatinine, Blood 4.45 mg/dL (0.40-1.00); Globulin, Blood 3.6 g/dL (2.2-4.0); Potassium, Blood 3.9 mmol/L (3.5-5.5)
== END 2022-07-06 13:40 | disposition home or self-care (01) ==
LOC: ER 10:04
PROVIDERS: Physician Assistant
DX: K52.9 Noninfective gastroenteritis and colitis, unspecified (principal); N18.6 End stage renal disease; D72.829 Elevated white blood cell count, unspecified; I25.10 Atherosclerotic heart disease of native coronary artery without angina pectoris; E11.22 Type 2 diabetes mellitus with diabetic chronic kidney disease; J44.9 Chronic obstructive pulmonary disease, unspecified; Z99.2 Dependence on renal dialysis; Z88.0 Allergy status to penicillin; Z88.8 Allergy status to other drugs, medicaments and biological substances; Z79.899 Other long term (current) drug therapy
CPT/HCPCS: 36415; 74176; 80053; 83690; 85025; J7030

== ENCOUNTER → 2022-07-20 | Outpatient (CLI) | payer MEDICARE, OTHER ==
[2022-07-20 14:52] LABS: Appearance, Urine Clear (Clear); Bilirubin, Urine Neg (Neg); Blood, Urine 1+ (Neg); Glucose Qualitative, Urine 3+ (Neg); Ketones, Urine Neg (Neg); Leukocyte Esterase, Urine Neg (Neg); Nitrite, Urine Neg (Neg); Protein, Urine 3+ (Neg); Specific Gravity, Urine 1.015 (1.003-1.022); Urobilinogen, Urine NORM (Normal)
[2022-07-20 14:59] LABS: Color, Urine Pale Yellow (P-Yellow)
[2022-07-20 15:00] LABS: Bacteria Rare /hpf; Red Blood Cells, Urine 0-2 /hpf (0-2); Squamous Epithelial Cells Mod /hpf (Few); White Blood Cells, Urine 0-2 /hpf (0-5)
== END | disposition home or self-care (01) ==
LOC: LAB SHORT 11:37
PROVIDERS: Family Medicine
DX: R35.0 Frequency of micturition (principal)
CPT/HCPCS: 81001; 87086

== ENCOUNTER 2023-07-14 09:01 | Day surgery (SDC) | payer MEDICARE, OTHER ==
[2023-07-14] VITALS (14 sets, daily range): BP systolic 110–173; BP diastolic 68–125
[~2023-07-14] VITALS: Ht 167.6 cm; Wt 94.0 kg
[2023-07-14 10:03] LABS: BASOPHILS ABSOLUTE AUTO 0.12 K/mm3 (0.00-0.23); BASOPHILS PERCENT AUTO 1 % (0-2); EOSINOPHILS ABSOLUTE AUTO 0.45 K/mm3 (0.00-0.68); EOSINOPHILS PERCENT AUTO 4 % (0-6); Hematocrit 31.5 % (33.0-51.0); Hemoglobin 10.6 g/dL (11.5-16.0); IMMATURE GRAN ABSOLUTE AUTO 0.07 K/mm3 (0.00-0.10); IMMATURE GRAN PERCENT AUTO 1 % (0-1); LYMPHOCYTES ABSOLUTE AUTO 2.82 K/mm3 (0.84-5.20); LYMPHOCYTES PERCENT AUTO 23 % (21-46); MONOCYTES ABSOLUTE AUTO 0.95 K/mm3 (0.16-1.47); MONOCYTES PERCENT AUTO 8 % (4-13); Mean Corpuscular HGB 28.4 pg (26.0-34.0); Mean Corpuscular HGB Conc 33.7 g/dL (31.5-36.5); Mean Corpuscular Volume 85 fL (80-100); NEUTROPHILS ABSOLUTE AUTO 8.03 K/mm3 (1.96-9.15); NEUTROPHILS PERCENT AUTO 65 % (41-73); Platelet Count 325 K/mm3 (150-400); RDW Coefficient Variation 13.7 % (11.7-14.2); RDW Standard Deviation 42.4 fL (35.1-46.3); Red Blood Cell Count 3.73 M/mm3 (3.80-5.20); White Blood Cell Count 12.44 K/mm3 (4.00-11.30)
--- NOTE | 2023-07-14 10:53 | NUR ---
PT BACK TO RECOVERY FROM LAB. PT A&Ox4. PT SITTING UP IN RECLINER DRINKING COFFEE. FAMILY AT BEDSIDE.
--- NOTE | 2023-07-14 14:10 | NUR ---
PT BACK TO RECOVERY ROOM FROM LAB. PT A&Ox4. PT SITTING UP IN BED. PT GIVEN LUNCH TRAY.
--- NOTE | 2023-07-14 14:28 | NUR ---
PT GIVEN WARM BLANKET PER REQUEST. DIALYSIS APPOINTMENT SCHEDULED FOR TOMORROW AT 2:40pm AT [facility].
--- NOTE | 2023-07-14 15:43 | NUR ---
PT AMBULATED TO RESTROOM W/O ASSISTANCE. PT NOW GETTING DRESSED W/ HELP FROM . FISTULA SITE SOFT AND NON-TENDER, NO BLEEDING NOTED. THRILL PALPABLE.
--- NOTE | 2023-07-14 16:01 | NUR ---
PT AND GIVEN DC INSTRUCTIONS AND VERBALIZED UNDERSTANDING. IV OUT. FISTULA SITE SOFT AND NON-TENDER PER PT. NO BLEEDING NOTED. THRILL PALPABLE. PT CHANGED INTO CLOTHES. PT TAKEN TO Y VIA WC. TO DRIVE PT HOME.
== END 2023-07-14 16:16 | disposition home or self-care (01) ==
LOC: MHTC 09:01
PROVIDERS: Radiology Diagnostic Radiology
DX: T82.590A Other mechanical complication of surgically created arteriovenous fistula, initial encounter (principal); N18.6 End stage renal disease; E11.22 Type 2 diabetes mellitus with diabetic chronic kidney disease; I12.0 Hypertensive chronic kidney disease with stage 5 chronic kidney disease or end stage renal disease; G20.A1 Parkinson's disease without dyskinesia, without mention of fluctuations; Z79.4 Long term (current) use of insulin; Z79.899 Other long term (current) drug therapy; Z87.891 Personal history of nicotine dependence; Z88.0 Allergy status to penicillin; Z88.8 Allergy status to other drugs, medicaments and biological substances
CPT/HCPCS: 36905; 76937; 85025; 99152; 99153; C1725; C1757; C1769; C1887; C1894; J1644; J2250; J2997; J3010; J7030; Q9967

== ENCOUNTER 2023-12-08 00:27 | Emergency (ER) | payer MEDICARE, OTHER ==
[~2023-12-08] VITALS: Ht 165.1 cm; Wt 88.5 kg
[2023-12-08 07:00] VITALS: BP 147/66
== END 2023-12-08 07:22 | disposition home or self-care (01) ==
LOC: ER 00:27
DX: K64.4 Residual hemorrhoidal skin tags (principal); K92.1 Melena; K59.00 Constipation, unspecified; F11.20 Opioid dependence, uncomplicated; E11.22 Type 2 diabetes mellitus with diabetic chronic kidney disease; N18.9 Chronic kidney disease, unspecified; J44.9 Chronic obstructive pulmonary disease, unspecified; Z86.73 Personal history of transient ischemic attack (TIA), and cerebral infarction without residual deficits; Z87.891 Personal history of nicotine dependence; Z79.82 Long term (current) use of aspirin; Z99.2 Dependence on renal dialysis; Z79.4 Long term (current) use of insulin; Z88.0 Allergy status to penicillin; Z88.8 Allergy status to other drugs, medicaments and biological substances

== ENCOUNTER 2024-02-22 11:21 | Inpatient (IN) | payer MEDICARE, OTHER ==
[~2024-02-22] VITALS: Ht 165.1 cm; Wt 91.2 kg
[~2024-02-22 11:21] MED LIST changes: +DOCU100 PO
[2024-02-22 12:04] LABS: BASOPHILS ABSOLUTE AUTO 0.05 K/mm3 (0.00-0.23); BASOPHILS PERCENT AUTO 0 % (0-2); EOSINOPHILS ABSOLUTE AUTO 0.42 K/mm3 (0.00-0.68); EOSINOPHILS PERCENT AUTO 3 % (0-6); Hematocrit 25.6 % (33.0-51.0); Hemoglobin 8.2 g/dL (11.5-16.0); IMMATURE GRAN PERCENT AUTO 1 % (0-1); LYMPHOCYTES ABSOLUTE AUTO 2.44 K/mm3 (0.84-5.20); LYMPHOCYTES PERCENT AUTO 17 % (21-46); MONOCYTES ABSOLUTE AUTO 1.22 K/mm3 (0.16-1.47); MONOCYTES PERCENT AUTO 8 % (4-13); Mean Corpuscular HGB 27.3 pg (26.0-34.0); Mean Corpuscular Volume 85 fL (80-100); Mean Platelet Volume 8.7 fL (9.1-12.4); NEUTROPHILS ABSOLUTE AUTO 10.33 K/mm3 (1.96-9.15); NEUTROPHILS PERCENT AUTO 71 % (41-73); Platelet Count 389 K/mm3 (150-400); RDW Coefficient Variation 15.2 % (11.7-14.2); RDW Standard Deviation 46.9 fL (35.1-46.3); White Blood Cell Count 14.56 K/mm3 (4.00-11.30)
[2024-02-22 12:28] LABS: Albumin, Blood 3.3 g/dL (3.4-5.0); Albumin/Globulin Ratio 1.1 (0.8-1.8); Bilirubin, Total 0.4 mg/dL (0.1-1.0); Bun/Creatinine Ratio 15.1 (12.0-20.0); Calcium, Blood 8.8 mg/dL (8.5-10.1); Creatinine, Blood 5.29 mg/dL (0.40-1.00); Globulin, Blood 2.9 g/dL (2.2-4.0); Total Protein, Blood 6.2 g/dL (6.4-8.2)
[2024-02-22] MEDS ORDERED: Polyethylene Glycol 3350 17 gm PO PRN (15:35)
[2024-02-22] MEDS ORDERED: Insulin Human Lispro 100 Units/ML 3ML Syringe SC SCH (16:30)
[2024-02-22] MEDS ORDERED: EZET10 PO (17:37)
[2024-02-22] MEDS ORDERED: BRILINTA90 M1 PO (17:39)
[2024-02-22] MEDS ORDERED: BASAGLAR K100 UNIT/1 SC (17:40)
[2024-02-22] MEDS ORDERED: CLOBETASOL EMOL15 G1 TOP (17:41)
[2024-02-22 17:42] VITALS: BP 150/74
[2024-02-22] MEDS ORDERED: FENTANYL1 EA12 TOP (17:43)
--- NOTE | 2024-02-22 17:52 | NUR ---
ADMIT PT ADMITTED TO ROOM 341. HOME MED REC COMPLETED. & DR. CRUMP NOTIFIED. PT C/O PAIN IN HER BACK FROM RECENT FALL THIS WEEKEND. [facility] STATED THAT PT WILL BE TAKEN BACK IN "ABOUT AN HOUR" FOR HER FISTULAGRAM. PT UPDATED ON THIS PLAN.
[2024-02-22] MEDS ORDERED: Cyclobenzaprine HCl 10 MG Tab PO PRN (17:55)
[2024-02-22] MEDS ORDERED: HYDROcodone 10-APAP 325 TAB PO PRN (17:55)
[2024-02-22] MEDS ORDERED: FentaNYL 12 MCG/HR Patch TOP SCH (17:55)
[2024-02-22] MEDS ORDERED: Furosemide 40 MG Tab PO SCH (18:00)
[2024-02-22] MEDS ORDERED: NS 1,000 ML IV ONE ×2 (18:30→18:52)
[2024-02-22] MEDS ORDERED: Heparin Sodium 1000 Units/ML 10ML MDV ONE (18:30)
[2024-02-22] MEDS ORDERED: Midazolam HCl 1MG / ML 2ML Vial ONE (18:51)
[2024-02-22] MEDS ORDERED: FentaNYL Citrate 50 MCG/ML 2 ML Injection ONE (18:52)
[2024-02-22 19:52] VITALS: BP 94/82
[2024-02-22 19:53] VITALS: BP 149/79
[2024-02-22] MEDS ORDERED: Albuterol HFA200 ACT/6.7 GM INH INH PRN (20:15)
[2024-02-22] MEDS ORDERED: Ticagrelor 90 MG TABLET PO SCH (21:00)
[2024-02-22] MEDS ORDERED: Docusate Sodium/Senna 1 Tab PO SCH (21:00)
[2024-02-22] MEDS ORDERED: Insulin Glargine-Yfgn 100 Unit/mL 3 ML SYR SC SCH (21:00)
[2024-02-22] MEDS ORDERED: Melatonin 5 MG Tablet PO SCH (21:00)
[2024-02-23] VITALS (18 sets, daily range): BP systolic 125–177; BP diastolic 64–100
[2024-02-23 05:46] LABS: Hematocrit 25.4 % (33.0-51.0); Hemoglobin 8.1 g/dL (11.5-16.0); Mean Corpuscular HGB 27.3 pg (26.0-34.0); Mean Corpuscular HGB Conc 31.9 g/dL (31.5-36.5); Mean Corpuscular Volume 86 fL (80-100); Mean Platelet Volume 9.2 fL (9.1-12.4); Platelet Count 378 K/mm3 (150-400); RDW Coefficient Variation 15.1 % (11.7-14.2); Red Blood Cell Count 2.97 M/mm3 (3.80-5.20); White Blood Cell Count 11.74 K/mm3 (4.00-11.30)
[2024-02-23] MEDS ORDERED: Omeprazole 20 MG CapCR PO SCH (06:00)
--- NOTE | 2024-02-23 06:13 | NUR ---
ROUGH RICE TENDER SUMMARY PT HAD FISTULOGRAM LAST NIGHT AND CAME BACK TO UNIT IN NO ACUTE DISTRESS. SHE REPORTS THAT HER CHRONIC PAIN HAS GOTTEN MUCH WORSE SINCE HER RECENT FALL. NO OTHER ISSUES NOTED. ANTICIPATING PT WILL GET DIALYSIS TODAY HER NORMAL DAYS ARE MWF.
[2024-02-23 06:58] LABS: Albumin, Blood 3.1 g/dL (3.4-5.0); Anion Gap 16 mmol/L (3-11); Blood Urea Nitrogen 82 mg/dL (8-24); Bun/Creatinine Ratio 15.3 (12.0-20.0); CO2, Blood 19 mmol/L (21-32); Calcium, Blood 8.8 mg/dL (8.5-10.1); Chloride, Blood 101 mmol/L (98-108); Creatinine, Blood 5.35 mg/dL (0.40-1.00); Glomerular Filtration Rate 8 (60-); Glucose, Blood 246 mg/dL (70-99); Phosphorus, Blood 6.7 mg/dL (2.5-4.9); Potassium, Blood 4.9 mmol/L (3.5-5.5); Sodium, Blood 131 mmol/L (136-145)
[2024-02-23] MEDS ORDERED: AmLODIPine Besylate 5 MG Tab PO SCH (09:00)
--- NOTE | 2024-02-23 17:33 | NUR ---
SUMMARY PT SITTING UP IN BED WATCHING TV, PT HAS BEEN PLEASANT AND COOPERATIVE WITH CARE T/O THE DAY, PT HAD DIALYSIS TODAY, JEMMA WELL, PT WORKED WITH THERAPY, PLAN IS HOME HEALTH, PT MED PER EMAR FOR PAIN NEEDED, VSS, WILL CONT TO MONITOR
[2024-02-24 03:35] VITALS: BP 154/69
--- NOTE | 2024-02-24 04:19 | NUR ---
SHIFT SUMMARY S/P HD GRAFT OCCLUSION OPENING. NO ACUTE CHANGES OVERNIGHT. VSS. A&0 x4. VSS. TOLERATING ORALS. AMBULATES USING FWW c 1 PERSON ASSIST TO STAND/PIVOT TO BSC. VOIDING c 1 PERSON ASSIST; INCONT VOIDS- ATTENDS IN USE, SMALL BM OVERNIGHT. PT RATES PAIN @ MIN OF 710 R/T CHRONIC BACK PAIN, MEDICATED PER EMAR. PT ABLE TO SLEEP INTERMITTENTLY T/O NIGHT. PT STATES THIS RN "NEVER DOES ANYTHING I ASK." PT EDUCATED ON ACTIONS PERFORMED R/T TOILETING, REPOSITIONING, MEDICATION ADMINISTRATION, AND FOOD/DRINK REQUESTS. ANTICIPATED D/C c HH. CALL LIGHT IN REACH, BED IN LOWEST POSITION, WILL REPORT TO DAY RN.
[2024-02-24 07:52] VITALS: BP 148/62
--- NOTE | 2024-02-24 13:30 | NUR ---
REPORT RECEIVED VERIFIED PT A/O VSS C/O PAIN TO LOWER BACK WHICH IS CHRONIC. DISCHARGE INSTRUCTIONS GIVEN AND PT ANXIOUS TO GO HOME. DIALYSIS ORDERED FOR TOMORROW AND DC PAPER WORK FININSHED, NO CHANGES IN MEDICATION. IV DCED AND PT DISCHARGED AT 1230
== END 2024-02-24 12:30 | disposition home or self-care (01) | DRG 252 ==
LOC: ER 11:21 → MEDS 15:16
PROVIDERS: Student in an Organized Health Care Education/Training Program; ADMIT Internal Medicine
PROC: 037Y3ZZ Dilation of Upper Artery, Percutaneous Approach (ICD-10-PCS; principal; 2024-02-22)
DX: T82.868A Thrombosis due to vascular prosthetic devices, implants and grafts, initial encounter (principal); N18.6 End stage renal disease; I13.2 Hypertensive heart and chronic kidney disease with heart failure and with stage 5 chronic kidney disease, or end stage renal disease; D63.1 Anemia in chronic kidney disease; I25.10 Atherosclerotic heart disease of native coronary artery without angina pectoris; M54.9 Dorsalgia, unspecified; G89.29 Other chronic pain; J44.9 Chronic obstructive pulmonary disease, unspecified; G47.33 Obstructive sleep apnea (adult) (pediatric); E11.22 Type 2 diabetes mellitus with diabetic chronic kidney disease; M19.90 Unspecified osteoarthritis, unspecified site; F32.A Depression, unspecified; K21.9 Gastro-esophageal reflux disease without esophagitis; I50.9 Heart failure, unspecified; K59.00 Constipation, unspecified; Z98.890 Other specified postprocedural states; Z98.51 Tubal ligation status; Z79.4 Long term (current) use of insulin; Z95.5 Presence of coronary angioplasty implant and graft; Z99.2 Dependence on renal dialysis; Z88.0 Allergy status to penicillin; Z88.8 Allergy status to other drugs, medicaments and biological substances; Z79.899 Other long term (current) drug therapy; Z79.51 Long term (current) use of inhaled steroids; Z79.82 Long term (current) use of aspirin; Z86.73 Personal history of transient ischemic attack (TIA), and cerebral infarction without residual deficits; Z79.01 Long term (current) use of anticoagulants; Z87.891 Personal history of nicotine dependence; Y83.8 Other surgical procedures as the cause of abnormal reaction of the patient, or of later complication, without mention of misadventure at the time of the procedure
CPT/HCPCS: 36415; 36902; 76937; 80053; 80069; 82947; 83735; 85025; 85027; 93005; 93010; 93990; 94760; 97161; 97530; 99152; 99153; 99285-25; A9270; C1725; C1769; C1894; J1644; J1815; J2250; J3010; J7030; Q9967

== ENCOUNTER 2024-05-25 07:21 | Day surgery (SDC) | payer MEDICARE, OTHER ==
[~2024-05-25] VITALS: Ht 165.1 cm; Wt 81.6 kg
[~2024-05-25 07:21] MED LIST changes: +ASPERFLEX LIDOC15 GM; +BASAGLAR K100 UNIT/1; +BASAGLAR K100 UNIT/1 SC; +BREO ELLIPTA 21 EAC1 INH; +BRILINTA90 M1 PO; +Balanced Salt Epinephrine Irrigation Solution 500 mL IR SCH; +CLOBETASOL EMOL15 G1; +CLOBETASOL EMOL15 G1 TOP; +EZET10 PO; +FENTANYL1 EA10 TOP; +FENTANYL1 EA12 TOP; +GABA100 PO; +INSDET100 SC; +Lidocaine HCl/Pf 1% 5 ML VIAL ONE; +Lidocaine HCl/Pf 1% 5 ML VIAL XX SCH; +MECL12.5; +MORP15ER PO; +MORP30 PO; +Moxifloxacin HCL 0.5 MG/0.1 ML 0.4MLSYR LEFTEYE SCH; +NALOXONE H0.4 MG/1 M; +NS 500 ML IV ONE; +Norco 10-325 T1 EACH PO; +ONDA4ODT MM; +PHENYLEPHRINE\\TROPICAMIDE\\TETRACAINE OPHTHALMIC DILATING SOLN LEFTEYE PRN; +Povidone-Iodine 450 DROP/30 ML Solution LEFTEYE SCH; +Povidone-Iodine 450 DROP/30 ML Solution ONE; +Tetracaine HCl/Pf 0.5% Opth Soln 4 ml ONE; +Triamcinolone A15 G2 TOP; +Triamcinolone Inj Susp 40 MG / ML 1ML Vial INJ SCH; +Triamcinolone Inj Susp 40 MG / ML 1ML Vial ONE
[2024-05-25] MEDS ORDERED: NS 500 ML IV ONE (08:15)
[2024-05-25] MEDS ORDERED: Midazolam HCl 1MG / ML 2ML Vial ONE (09:20)
[2024-05-25] MEDS ORDERED: Labetalol HCL 5 MG/ML 4ML Injection (Single Dose) ONE (09:23)
[2024-05-25] MEDS ORDERED: NS 1,000 ML IV ONE (09:35)
[2024-05-25 14:09] VITALS: BP 146/69
== END 2024-05-25 10:00 | disposition home or self-care (01) ==
LOC: ORSCSDS 07:21
PROVIDERS: Ophthalmology
PROC: 08RK3JZ Replacement of Left Lens with Synthetic Substitute, Percutaneous Approach (ICD-10-PCS; principal; 2024-05-25 09:00)
DX: E11.36 Type 2 diabetes mellitus with diabetic cataract (principal); H25.813 Combined forms of age-related cataract, bilateral; I10 Essential (primary) hypertension; I21.9 Acute myocardial infarction, unspecified; J44.9 Chronic obstructive pulmonary disease, unspecified; G20.A1 Parkinson's disease without dyskinesia, without mention of fluctuations; E66.9 Obesity, unspecified; Z68.30 Body mass index [BMI] 30.0-30.9, adult; Z87.891 Personal history of nicotine dependence; Z86.73 Personal history of transient ischemic attack (TIA), and cerebral infarction without residual deficits; Z79.899 Other long term (current) drug therapy
CPT/HCPCS: 82947; 84132; J2003; J2250; J3301; J7040; V2632

== ENCOUNTER 2024-06-01 07:48 | Day surgery (SDC) | payer MEDICARE, OTHER ==
[~2024-06-01] VITALS: Ht 162.6 cm; Wt 82.4 kg
[~2024-06-01 07:48] MED LIST changes: -Balanced Salt Epinephrine Irrigation Solution 500 mL IR SCH; -Lidocaine HCl/Pf 1% 5 ML VIAL ONE; -Lidocaine HCl/Pf 1% 5 ML VIAL XX SCH; -Moxifloxacin HCL 0.5 MG/0.1 ML 0.4MLSYR LEFTEYE SCH; -PHENYLEPHRINE\\TROPICAMIDE\\TETRACAINE OPHTHALMIC DILATING SOLN LEFTEYE PRN; -Povidone-Iodine 450 DROP/30 ML Solution LEFTEYE SCH; -Triamcinolone Inj Susp 40 MG / ML 1ML Vial INJ SCH
[2024-06-01] MEDS ORDERED: Midazolam HCl 1MG / ML 2ML Vial ONE (08:56)
[2024-06-01] MEDS ORDERED: NS 500 ML IV ONE (09:13)
[2024-06-01] MEDS ORDERED: Lidocaine HCl 1% 30 ML SDV XX ONE (09:25)
[2024-06-01] MEDS ORDERED: Balanced Salt Epinephrine Irrigation Solution 500 mL IR ONE (09:25)
[2024-06-01] MEDS ORDERED: Moxifloxacin HCL 0.5 MG/0.1 ML 0.4MLSYR XX ONE (09:25)
[2024-06-01 09:42] VITALS: BP 130/67
== END 2024-06-01 09:49 | disposition home or self-care (01) ==
LOC: ORSCSDS 07:48
PROVIDERS: Ophthalmology
PROC: 08RJ3JZ Replacement of Right Lens with Synthetic Substitute, Percutaneous Approach (ICD-10-PCS; principal; 2024-06-01 09:30)
DX: H25.811 Combined forms of age-related cataract, right eye (principal); Z96.1 Presence of intraocular lens; I25.2 Old myocardial infarction; J44.9 Chronic obstructive pulmonary disease, unspecified; E11.22 Type 2 diabetes mellitus with diabetic chronic kidney disease; I12.0 Hypertensive chronic kidney disease with stage 5 chronic kidney disease or end stage renal disease; N18.6 End stage renal disease; G20.A1 Parkinson's disease without dyskinesia, without mention of fluctuations; E66.9 Obesity, unspecified; Z68.30 Body mass index [BMI] 30.0-30.9, adult; Z79.82 Long term (current) use of aspirin; Z79.4 Long term (current) use of insulin; Z79.899 Other long term (current) drug therapy
CPT/HCPCS: 82947; J2250; J3301; J7040; V2632

== ENCOUNTER 2024-06-05 04:53 | Emergency (ER) | payer MEDICARE, OTHER ==
[~2024-06-05] VITALS: Ht 165.1 cm; Wt 82.1 kg
[~2024-06-05 04:53] MED LIST changes: -NS 500 ML IV ONE; -Povidone-Iodine 450 DROP/30 ML Solution ONE; -Tetracaine HCl/Pf 0.5% Opth Soln 4 ml ONE; -Triamcinolone Inj Susp 40 MG / ML 1ML Vial ONE
[2024-06-05 06:15] LABS: BASOPHILS ABSOLUTE AUTO 0.09 K/mm3 (0.00-0.23); BASOPHILS PERCENT AUTO 1 % (0-2); EOSINOPHILS ABSOLUTE AUTO 0.59 K/mm3 (0.00-0.68); EOSINOPHILS PERCENT AUTO 4 % (0-6); Hematocrit 39.5 % (33.0-51.0); Hemoglobin 13.2 g/dL (11.5-16.0); IMMATURE GRAN ABSOLUTE AUTO 0.06 K/mm3 (0.00-0.10); IMMATURE GRAN PERCENT AUTO 0 % (0-1); LYMPHOCYTES ABSOLUTE AUTO 2.04 K/mm3 (0.84-5.20); LYMPHOCYTES PERCENT AUTO 15 % (21-46); MONOCYTES ABSOLUTE AUTO 1.13 K/mm3 (0.16-1.47); MONOCYTES PERCENT AUTO 8 % (4-13); Mean Corpuscular HGB 27.6 pg (26.0-34.0); Mean Corpuscular HGB Conc 33.4 g/dL (31.5-36.5); Mean Corpuscular Volume 83 fL (80-100); Mean Platelet Volume 8.8 fL (9.1-12.4); NEUTROPHILS ABSOLUTE AUTO 10.03 K/mm3 (1.96-9.15); NEUTROPHILS PERCENT AUTO 72 % (41-73); Platelet Count 297 K/mm3 (150-400); RDW Coefficient Variation 16.5 % (11.7-14.2); RDW Standard Deviation 50.1 fL (35.1-46.3); Red Blood Cell Count 4.78 M/mm3 (3.80-5.20); White Blood Cell Count 13.94 K/mm3 (4.00-11.30)
[2024-06-05 06:30] LABS: International Normalized Ratio 0.98; Prothrombin Time Results 10.5 Sec (9.7-11.5)
[2024-06-05 06:34] LABS: Albumin, Blood 3.3 g/dL (3.4-5.0); Bilirubin, Total 0.7 mg/dL (0.1-1.0); Calcium, Blood 9.1 mg/dL (8.5-10.1); Creatinine, Blood 4.71 mg/dL (0.40-1.00); Globulin, Blood 3.4 g/dL (2.2-4.0); Potassium, Blood 5.1 mmol/L (3.5-5.5); Total Protein, Blood 6.7 g/dL (6.4-8.2)
[2024-06-05 08:00] VITALS: BP 132/69
== END 2024-06-05 08:25 | disposition home or self-care (01) ==
LOC: ER 04:53
PROVIDERS: Student in an Organized Health Care Education/Training Program
DX: K62.5 Hemorrhage of anus and rectum (principal); I13.2 Hypertensive heart and chronic kidney disease with heart failure and with stage 5 chronic kidney disease, or end stage renal disease; E11.22 Type 2 diabetes mellitus with diabetic chronic kidney disease; N18.9 Chronic kidney disease, unspecified; I50.9 Heart failure, unspecified; I25.10 Atherosclerotic heart disease of native coronary artery without angina pectoris; J44.9 Chronic obstructive pulmonary disease, unspecified; G47.33 Obstructive sleep apnea (adult) (pediatric); K21.9 Gastro-esophageal reflux disease without esophagitis; E78.00 Pure hypercholesterolemia, unspecified; Z87.19 Personal history of other diseases of the digestive system; Z99.2 Dependence on renal dialysis; Z86.73 Personal history of transient ischemic attack (TIA), and cerebral infarction without residual deficits; Z87.891 Personal history of nicotine dependence; Z95.5 Presence of coronary angioplasty implant and graft; Z88.0 Allergy status to penicillin; Z88.8 Allergy status to other drugs, medicaments and biological substances; Z79.02 Long term (current) use of antithrombotics/antiplatelets; Z79.82 Long term (current) use of aspirin; Z79.4 Long term (current) use of insulin; Z79.899 Other long term (current) drug therapy
CPT/HCPCS: 74174; 80053; 85025; 85610; 85730; 86850; 86900; 86901; 99284-25; P9612; Q9967

== ENCOUNTER 2024-06-11 11:47 | Emergency (ER) | payer MEDICARE, OTHER ==
[~2024-06-11] VITALS: Ht 165.1 cm; Wt 81.7 kg
[2024-06-11 12:18] LABS: BASOPHILS ABSOLUTE AUTO 0.12 K/mm3 (0.00-0.23); BASOPHILS PERCENT AUTO 1 % (0-2); EOSINOPHILS ABSOLUTE AUTO 0.95 K/mm3 (0.00-0.68); EOSINOPHILS PERCENT AUTO 9 % (0-6); Hematocrit 40.7 % (33.0-51.0); Hemoglobin 12.9 g/dL (11.5-16.0); IMMATURE GRAN ABSOLUTE AUTO 0.03 K/mm3 (0.00-0.10); IMMATURE GRAN PERCENT AUTO 0 % (0-1); LYMPHOCYTES ABSOLUTE AUTO 2.13 K/mm3 (0.84-5.20); LYMPHOCYTES PERCENT AUTO 20 % (21-46); MONOCYTES ABSOLUTE AUTO 0.81 K/mm3 (0.16-1.47); MONOCYTES PERCENT AUTO 8 % (4-13); Mean Corpuscular HGB 27.1 pg (26.0-34.0); Mean Corpuscular HGB Conc 31.7 g/dL (31.5-36.5); Mean Corpuscular Volume 86 fL (80-100); Mean Platelet Volume 8.7 fL (9.1-12.4); NEUTROPHILS ABSOLUTE AUTO 6.53 K/mm3 (1.96-9.15); NEUTROPHILS PERCENT AUTO 62 % (41-73); Platelet Count 299 K/mm3 (150-400); RDW Coefficient Variation 16.2 % (11.7-14.2); RDW Standard Deviation 50.8 fL (35.1-46.3); Red Blood Cell Count 4.76 M/mm3 (3.80-5.20); White Blood Cell Count 10.57 K/mm3 (4.00-11.30)
[2024-06-11 12:41] LABS: Albumin, Blood 3.4 g/dL (3.4-5.0); Albumin/Globulin Ratio 1.2 (0.8-1.8); Bilirubin, Total 0.4 mg/dL (0.1-1.0); Bun/Creatinine Ratio 10.6 (12.0-20.0); Creatinine, Blood 4.62 mg/dL (0.40-1.00); Globulin, Blood 2.9 g/dL (2.2-4.0); Potassium, Blood 4.5 mmol/L (3.5-5.5); Total Protein, Blood 6.3 g/dL (6.4-8.2)
[2024-06-11 12:57] VITALS: BP 149/72
[2024-06-11] MEDS ORDERED: BASAGLAR K100 UNIT/8 SC (13:37)
== END 2024-06-11 13:13 | disposition home or self-care (01) ==
LOC: ER 11:47
PROVIDERS: Physician Assistant
DX: K62.5 Hemorrhage of anus and rectum (principal); E11.22 Type 2 diabetes mellitus with diabetic chronic kidney disease; G47.33 Obstructive sleep apnea (adult) (pediatric); N18.6 End stage renal disease; I13.2 Hypertensive heart and chronic kidney disease with heart failure and with stage 5 chronic kidney disease, or end stage renal disease; I50.9 Heart failure, unspecified; K21.9 Gastro-esophageal reflux disease without esophagitis; Z87.891 Personal history of nicotine dependence; Z86.73 Personal history of transient ischemic attack (TIA), and cerebral infarction without residual deficits
CPT/HCPCS: 80053; 85025; 99283

== ENCOUNTER 2024-07-14 10:49 | Emergency (ER) | payer MEDICARE, OTHER ==
[~2024-07-14] VITALS: Ht 165.1 cm; Wt 77.6 kg
[~2024-07-14 10:49] MED LIST changes: +BASAGLAR K100 UNIT/8 SC
[2024-07-14] MEDS ORDERED: Midazolam HCl 1MG / ML 2ML Vial ONE (11:43)
[2024-07-14] MEDS ORDERED: NS 500 ML IV ONE (11:43)
[2024-07-14] MEDS ORDERED: FentaNYL Citrate 50 MCG/ML 2 ML Injection ONE (11:43)
[2024-07-14] MEDS ORDERED: NS 1,000 ML IV ONE (11:48)
[2024-07-14] MEDS ORDERED: Heparin Sodium 1000 Units/ML 10ML MDV ONE (11:48)
[2024-07-14 13:46] VITALS: BP 139/80
--- NOTE | 2024-07-14 13:51 | NUR ---
PT WAS BROUGHT DIRECTLY FROM ER TO CEMENT FINISHER APPRENTICE FOR DECLOT OF LEFT FISTULA CATHETER W DR WEISS. PROCEDURE WAS SUCCESSFUL. PT JEMMA PROCEDURE WELL W/O ANY ISSUES. PT AWAKE AND ALERT POST PROCEDURE. VSS. PT TO RETURN TO DIALYSIS TO HAVE HD COMPLETED TODAY.
[2024-07-14 14:00] VITALS: BP 144/85
--- NOTE | 2024-07-14 14:14 | NUR ---
PT JEMMA FOOD/FLUIDS. DENIES COMPLAINTS. LEFT FISTULA SITE WNL, RAULG C/D/I. VERBAL AND WRITTEN DISCHARGE INFORMATION GIVEN W CLEAR UNDERSTANDING. PT DC'D IN CARE OF AT 1415. [facility] CALLED AND THEY ARE HOLDING A SPOT FOR HER TO FINISH DIALYSIS NOW.
== END 2024-07-14 11:55 | disposition home or self-care (01) ==
LOC: ER 10:49
DX: T82.898A Other specified complication of vascular prosthetic devices, implants and grafts, initial encounter (principal); E11.22 Type 2 diabetes mellitus with diabetic chronic kidney disease; N18.6 End stage renal disease; I13.2 Hypertensive heart and chronic kidney disease with heart failure and with stage 5 chronic kidney disease, or end stage renal disease; I50.9 Heart failure, unspecified; K21.9 Gastro-esophageal reflux disease without esophagitis; E78.00 Pure hypercholesterolemia, unspecified; G47.33 Obstructive sleep apnea (adult) (pediatric); Z87.891 Personal history of nicotine dependence; Z86.73 Personal history of transient ischemic attack (TIA), and cerebral infarction without residual deficits; Z79.899 Other long term (current) drug therapy; Z79.4 Long term (current) use of insulin; Z79.82 Long term (current) use of aspirin; Z88.0 Allergy status to penicillin; Z88.8 Allergy status to other drugs, medicaments and biological substances
CPT/HCPCS: 76937; 99152; 99153; 99283; C1725; C1769; C1887; C1894; C2623; J1644; J2250; J3010; J7030; J7040; Q9967

== ENCOUNTER 2024-10-23 09:20 | Emergency (ER) | payer MEDICARE, OTHER ==
[~2024-10-23] VITALS: Ht 167.6 cm; Wt 77.6 kg
[2024-10-23] MEDS ORDERED: NARCAN4 M1 (09:47)
[2024-10-23 09:49] LABS: BASOPHILS ABSOLUTE AUTO 0.02 K/mm3 (0.00-0.23); BASOPHILS PERCENT AUTO 0 % (0-2); EOSINOPHILS ABSOLUTE AUTO 0.06 K/mm3 (0.00-0.68); EOSINOPHILS PERCENT AUTO 1 % (0-6); Hematocrit 23.7 % (33.0-51.0); Hemoglobin 8.1 g/dL (11.5-16.0); IMMATURE GRAN ABSOLUTE AUTO 0.02 K/mm3 (0.00-0.10); IMMATURE GRAN PERCENT AUTO 0 % (0-1); LYMPHOCYTES ABSOLUTE AUTO 0.99 K/mm3 (0.84-5.20); LYMPHOCYTES PERCENT AUTO 12 % (21-46); MONOCYTES ABSOLUTE AUTO 0.77 K/mm3 (0.16-1.47); MONOCYTES PERCENT AUTO 9 % (4-13); Mean Corpuscular HGB 29.8 pg (26.0-34.0); Mean Corpuscular HGB Conc 34.2 g/dL (31.5-36.5); Mean Corpuscular Volume 87 fL (80-100); Mean Platelet Volume 8.4 fL (9.1-12.4); NEUTROPHILS ABSOLUTE AUTO 6.49 K/mm3 (1.96-9.15); NEUTROPHILS PERCENT AUTO 78 % (41-73); Platelet Count 262 K/mm3 (150-400); RDW Coefficient Variation 15.6 % (11.7-14.2); RDW Standard Deviation 49.5 fL (35.1-46.3); Red Blood Cell Count 2.72 M/mm3 (3.80-5.20); White Blood Cell Count 8.35 K/mm3 (4.00-11.30)
[2024-10-23] MEDS ORDERED: Ondansetron HCl 2 MG / ML 2ML Vial IV ONE (09:55)
[2024-10-23] MEDS ORDERED: NS 1,000 ML IV SCH (09:55)
[2024-10-23 10:07] LABS: Albumin/Globulin Ratio 1.1 (0.8-1.8); Bilirubin, Total 0.4 mg/dL (0.1-1.0); Calcium, Blood 8.5 mg/dL (8.5-10.1); Creatinine, Blood 4.4 mg/dL (0.40-1.00); Globulin, Blood 2.7 g/dL (2.2-4.0); Potassium, Blood 3.8 mmol/L (3.5-5.5); Total Protein, Blood 5.7 g/dL (6.4-8.2)
[2024-10-23 13:00] VITALS: BP 102/58
== END 2024-10-23 13:13 | disposition home or self-care (01) ==
LOC: ER 09:20
PROVIDERS: Student in an Organized Health Care Education/Training Program
DX: E11.649 Type 2 diabetes mellitus with hypoglycemia without coma (principal); T38.3X5A Adverse effect of insulin and oral hypoglycemic [antidiabetic] drugs, initial encounter; R63.0 Anorexia; I13.2 Hypertensive heart and chronic kidney disease with heart failure and with stage 5 chronic kidney disease, or end stage renal disease; N18.6 End stage renal disease; E11.22 Type 2 diabetes mellitus with diabetic chronic kidney disease; I50.9 Heart failure, unspecified; I25.10 Atherosclerotic heart disease of native coronary artery without angina pectoris; J44.9 Chronic obstructive pulmonary disease, unspecified; E78.00 Pure hypercholesterolemia, unspecified; Z99.2 Dependence on renal dialysis; Z88.0 Allergy status to penicillin; Z88.8 Allergy status to other drugs, medicaments and biological substances; Z79.4 Long term (current) use of insulin; Z79.82 Long term (current) use of aspirin; Z87.891 Personal history of nicotine dependence; Z66 Do not resuscitate
CPT/HCPCS: 80053; 82947; 83735; 85025; 93005; 93010; 96374; 99285-25; J2405; J7030

== ENCOUNTER 2025-03-28 11:30 | Inpatient (IN) | payer MEDICARE, OTHER ==
[~2025-03-28] VITALS: Ht 165.1 cm; Wt 79.2 kg
[~2025-03-28 11:30] MED LIST changes: +NARCAN4 M1
[2025-03-28 12:59] LABS: BASOPHILS ABSOLUTE AUTO 0.07 K/mm3 (0.00-0.23); BASOPHILS PERCENT AUTO 1 % (0-2); EOSINOPHILS ABSOLUTE AUTO 0.33 K/mm3 (0.00-0.68); EOSINOPHILS PERCENT AUTO 3 % (0-6); Hematocrit 33.1 % (33.0-51.0); Hemoglobin 11.0 g/dL (11.5-16.0); IMMATURE GRAN ABSOLUTE AUTO 0.06 K/mm3 (0.00-0.10); IMMATURE GRAN PERCENT AUTO 1 % (0-1); LYMPHOCYTES ABSOLUTE AUTO 2.41 K/mm3 (0.84-5.20); LYMPHOCYTES PERCENT AUTO 20 % (21-46); MONOCYTES ABSOLUTE AUTO 1.00 K/mm3 (0.16-1.47); MONOCYTES PERCENT AUTO 9 % (4-13); Mean Corpuscular HGB Conc 33.2 g/dL (31.5-36.5); Mean Corpuscular Volume 85 fL (80-100); NEUTROPHILS ABSOLUTE AUTO 7.94 K/mm3 (1.96-9.15); NEUTROPHILS PERCENT AUTO 67 % (41-73); NRBC ABSOLUTE 0.00 K/mm3 (0.00-0.02); NRBC Auto 0.0 /100 WBC (0.0-0.2); Platelet Count 308 K/mm3 (150-400); RDW Coefficient Variation 15.9 % (11.7-14.2); RDW Standard Deviation 49.1 fL (35.1-46.3)
[2025-03-28 13:24] LABS: Alanine Aminotransfer (ALT/SGP 9.0 U/L (12-78); Albumin, Blood 3.3 g/dL (3.4-5.0); Albumin/Globulin Ratio 1.1 (0.8-1.8); Anion Gap 12.0 mmol/L (3-11); Aspartate Aminotrans (AST/SGOT 8.0 U/L (12-37); Bilirubin, Total 0.4 mg/dL (0.1-1.0); Blood Urea Nitrogen 31.0 mg/dL (8-24); CO2, Blood 32.0 mmol/L (21-32); Calcium, Blood 9.2 mg/dL (8.5-10.1); Chloride, Blood 88.0 mmol/L (98-108); Creatinine, Blood 3.91 mg/dL (0.40-1.00); Globulin, Blood 3.0 g/dL (2.2-4.0); Glucose, Blood 189.0 mg/dL (70-99); Potassium, Blood 4.1 mmol/L (3.5-5.5); Sodium, Blood 128.0 mmol/L (136-145); Total Protein, Blood 6.3 g/dL (6.4-8.2)
[2025-03-28] MEDS ORDERED: Heparin Sodium,Porcine 5,000 UNIT/0.5 ML SDV SC SCH (21:00)
[2025-03-28 22:38] VITALS: BP 146/69
[2025-03-29] VITALS (7 sets, daily range): BP systolic 112–143; BP diastolic 63–73
[2025-03-29] MEDS ORDERED: Insulin Human Lispro 100 Units/ML 3ML Syringe SC SCH
[2025-03-29] MEDS ORDERED: HYDROcodone 10-APAP 325 TAB PO PRN (00:30)
[2025-03-29] MEDS ORDERED: Naloxone HCl 0.4MG / ML 1ML Vial IV PRN (00:35)
--- NOTE | 2025-03-29 01:26 | NUR ---
CONTINUOUS BIOX PLACED PER PT PRIMARY RN. OXYGEN SATURATION 96 AND HR OF 77.
--- NOTE | 2025-03-29 06:11 | NUR ---
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 PT ARRIVED TO ROOM AT APROX 2230. A/OX4. PT ABLE TO PIVOT TRANSFER TO BED AND BSC WITH 1 ASSIST. EDUCATED STAFF/AUTOMATIC LATHE OPERATOR NO LEFT ARM BP/LAB DRAWS. PT IS FULL CODE. PT GOES TO DIALYSIS MW; UNABLE TO COMPLETE DIALYSIS ON WEDNESDAY DUE TO OCCLUSION TO LEFT ARM FISTULA. CONUSULTS FOR IR AND NEPHROLOGY ORDERED; ANSWERING SERVICES CALLED FOR BOTH. PT REPORTS SHE LIVES AT HOME WITH HER SPOUSE WHO IS HER PRIMARY CAREGIVER. PT IS WHEELCHAIR AT BASELINE DUE TO LEFT HIP OA AND PAIN (PT IS SCHEDULED TO HAVE LEFT HIP REPLACEMENT SURG IN JUNE 2025). PT LIVES IN 1 STORY HOUSE WITH RAMP LEADING INTO THE HOME ENTRANCE. PT DENIES SAFETY CONCERNS. PT PLACED NPO AT MIDNIGHT FOR INTERVENTIONAL RADIOLOGY PROCEDURE. PT HX OF DIABETES AND IS Q6 BLOOD SUGAR CHECKS. PT ORIENTED TO ROOM AND CALL LIGHT.ABLE TO MAKE NEEDS KNOWN. SKIN CHECK COMPLETE-PT HAS SCATTERED BRUISING, OTHERWISE SKIN INTACT. PT HX OF UT WITH STENT PLACEMENTS. ON ASPIRN AND BRILLINTA. REGULAR ROUNDING COMPLETE T/O THE NIGHT.
[2025-03-29 06:41] LABS: Anion Gap 13.0 mmol/L (3-11); Blood Urea Nitrogen 36.0 mg/dL (8-24); CO2, Blood 27.0 mmol/L (21-32); Calcium, Blood 8.9 mg/dL (8.5-10.1); Chloride, Blood 93.0 mmol/L (98-108); Creatinine, Blood 4.25 mg/dL (0.40-1.00); Glucose, Blood 80.0 mg/dL (70-99); Magnesium, Blood 2.2 mg/dL (1.6-2.4); Potassium, Blood 4.0 mmol/L (3.5-5.5); Sodium, Blood 129.0 mmol/L (136-145)
[2025-03-29] MEDS ORDERED: Alteplase Recombinant 2 MG / Vial IV ONE (09:50)
[2025-03-29] MEDS ORDERED: Heparin Sodium 1000 Units/ML 10ML MDV ONE (15:51)
[2025-03-29] MEDS ORDERED: NS 2,000 ML IV ONE (15:52)
[2025-03-29] MEDS ORDERED: Heparin Sodium 10,000 Units/ML 1ML MDV ONE (16:14)
[2025-03-29] MEDS ORDERED: Midazolam HCl 1MG / ML 2ML Vial ONE (16:14)
[2025-03-29] MEDS ORDERED: NS 0 ML IV ONE (16:15)
[2025-03-29] MEDS ORDERED: FentaNYL Citrate 50 MCG/ML 2 ML Injection ONE (16:15)
--- NOTE | 2025-03-29 18:38 | NUR ---
PT IS BACK IN ROOM FROM L PERM CATH PLACEMENT. SITTING UPRIGHT, EATING DINNER. PLAN FOR NPO AT MIDNIGHT AND LIKELY BACK TO IR APPROX 1300 TOMORROW TO DECLOT FISTULA. PT HAS CHRONIC PAIN THAT IS MANAGED PER EMAR. SBA TO BSC. NO OTHER CONCERNS THIS SHIFT
[2025-03-30] VITALS (14 sets, daily range): BP systolic 95–141; BP diastolic 58–72
--- NOTE | 2025-03-30 02:16 | NUR ---
AT 0015 ASSISTED PT TO BSC; NOTED NEW LEFT CHEST WAL PERM CATH IS OOZING BROOK BLOOD. CALLED CHARGE NURSE TO ASSIST WITH ASSESSMENT. CHARGE NURSE, LOOKED AT THE DRESSING--ADVISED NO ADDITIONAL INTERVENTION NEEDED AT THIS TIME THE SITE NOT ACTIVELY BLEEDING. CHARGE NURSE TO CHANGE DRESSING AT APROX 0400. WILL CONT TO MONITOR SITE FOR CHANGES.
[2025-03-30 05:51] LABS: BASOPHILS ABSOLUTE AUTO 0.06 K/mm3 (0.00-0.23); BASOPHILS PERCENT AUTO 1 % (0-2); EOSINOPHILS ABSOLUTE AUTO 0.35 K/mm3 (0.00-0.68); EOSINOPHILS PERCENT AUTO 3 % (0-6); Hematocrit 32.7 % (33.0-51.0); Hemoglobin 11.0 g/dL (11.5-16.0); IMMATURE GRAN ABSOLUTE AUTO 0.05 K/mm3 (0.00-0.10); IMMATURE GRAN PERCENT AUTO 1 % (0-1); LYMPHOCYTES ABSOLUTE AUTO 2.11 K/mm3 (0.84-5.20); LYMPHOCYTES PERCENT AUTO 20 % (21-46); MONOCYTES ABSOLUTE AUTO 0.86 K/mm3 (0.16-1.47); MONOCYTES PERCENT AUTO 8 % (4-13); Mean Corpuscular HGB Conc 33.6 g/dL (31.5-36.5); Mean Corpuscular Volume 85 fL (80-100); NEUTROPHILS ABSOLUTE AUTO 7.11 K/mm3 (1.96-9.15); NEUTROPHILS PERCENT AUTO 67 % (41-73); NRBC ABSOLUTE 0.00 K/mm3 (0.00-0.02); NRBC Auto 0.0 /100 WBC (0.0-0.2); Platelet Count 297 K/mm3 (150-400); RDW Coefficient Variation 15.6 % (11.7-14.2); RDW Standard Deviation 48.6 fL (35.1-46.3)
[2025-03-30 06:11] LABS: Anion Gap 14.0 mmol/L (3-11); Blood Urea Nitrogen 41.0 mg/dL (8-24); CO2, Blood 23.0 mmol/L (21-32); Calcium, Blood 8.8 mg/dL (8.5-10.1); Chloride, Blood 93.0 mmol/L (98-108); Creatinine, Blood 4.46 mg/dL (0.40-1.00); Glucose, Blood 131.0 mg/dL (70-99); Potassium, Blood 4.4 mmol/L (3.5-5.5); Sodium, Blood 126.0 mmol/L (136-145)
--- NOTE | 2025-03-30 06:15 | NUR ---
FREELANCE COURT STENOGRAPHER SUMMARY PT AWAKE IN FREQUENT INTERVALS T/O THE NIGHT. PT UP TO BSC AT LEAST ONCE AND HOUR, POSSIBLE MORE. PT HAS NEW LEFT CHEST WALL PERMCATH WHICH HAS BEEN OOZING SMALL AMOUNT OF BLOOD. PT HAS TWO OTHER PUNCTURE SITES WHERE CATH PLACEMENT WAS ATTEMPTED. PT OOZING BLOOD OUT OF THE SECONDARY SITE ON THE LEFT CHEST. PT CLEANED WITH CHLORHEXADINE WIPES AND NEW DRESSING APPLIED TO SECONDARY SITE. PERM CATH DRESSING NOT CHANGED AT THIS TIME. PT ABLE TO MAKE NEEDS KNOWN AND CALLING APPROPRIATELY. PT IS VERY PAINFUL WITH ALL ACTIVITY DUE TO LEFT HIP. CALL LIGHT ACCESSIBLE. CARE WILL CONTINUE UNTIL REPORT GIVEN TO ONCOMING NURSE.
[2025-03-30] MEDS ORDERED: Heparin Sodium 1000 Units/ML 10ML MDV ONE ×4 (12:59→15:25)
[2025-03-30] MEDS ORDERED: NS 2,000 ML IV ONE (12:59)
[2025-03-30] MEDS ORDERED: Midazolam HCl 1MG / ML 2ML Vial ONE ×2 (13:54→14:42)
[2025-03-30] MEDS ORDERED: FentaNYL Citrate 50 MCG/ML 2 ML Injection ONE ×2 (13:55→14:43)
[2025-03-30] MEDS ORDERED: NS 1,000 ML IV ONE ×2 (14:21→14:24)
--- NOTE | 2025-03-30 20:05 | NUR ---
PT BACK IN ROOM FROM DECLOTTING OF FISTULA. DROWSY BUT EASILY AROUSED. LEFT GROIN SITE HAS SOME BLOOD LEAKING. PRESSURE AND DRESSING APPLIED. 1 ASSIST TO BEDSIDE COMMODE. SEVERE PAIN LEFT HIP. TREATED PER EMAR. PT DIALIZED TODAY.
[2025-03-31 00:28] VITALS: BP 110/60
--- NOTE | 2025-03-31 01:12 | NUR ---
NEW TP-ORDER RECEIVED FROM THE ON-CALL HOSPITALIST DR. FERNANDEZ: CHANGE Q6 BG TO AC/HS. ENTERED TO Blink, SEE ORDERS AND SEE EMAR. NO ADDITIONAL NEW ORDERS AT THIS TIME.
--- NOTE | 2025-03-31 03:36 | NUR ---
SHIFT SUMMARY NO ACUTE EVENTS DURING THIS SHIFT. PT HAS SEVERE PAIN ON LEFT HIP. MEDICATED PER EMAR. PT REFUSING CPAP AT NIGHT DURING HOSPITAL STAY. CONTINUOUS PULSE OXIMETER MID 90% ON RA. PERM CATH DRESSING INTACT. BG CHECKS CHANGED TO AC/HS. BG AT HS 257 AND MIDNIGHT 182. BLE EDEMA +2. TELE: SR @93. PT DENIES SOB, CP/PRESSURE AND N/V DURING THIS SHIFT. BED AT THE LOWEST POSITION, CALL LIGHT W/I REACH. PT IS A/O X4, ABLE TO MAKE HER NEEDS KNOWN AND COOPERATIVE WITH CARE.
[2025-03-31 04:55] VITALS: BP 121/64
[2025-03-31 05:31] LABS: BASOPHILS ABSOLUTE AUTO 0.06 K/mm3 (0.00-0.23); BASOPHILS PERCENT AUTO 1 % (0-2); EOSINOPHILS ABSOLUTE AUTO 0.22 K/mm3 (0.00-0.68); EOSINOPHILS PERCENT AUTO 3 % (0-6); Hematocrit 28.1 % (33.0-51.0); Hemoglobin 9.3 g/dL (11.5-16.0); IMMATURE GRAN ABSOLUTE AUTO 0.03 K/mm3 (0.00-0.10); IMMATURE GRAN PERCENT AUTO 0 % (0-1); LYMPHOCYTES ABSOLUTE AUTO 1.89 K/mm3 (0.84-5.20); LYMPHOCYTES PERCENT AUTO 26 % (21-46); MONOCYTES ABSOLUTE AUTO 0.80 K/mm3 (0.16-1.47); MONOCYTES PERCENT AUTO 11 % (4-13); Mean Corpuscular HGB Conc 33.1 g/dL (31.5-36.5); Mean Corpuscular Volume 85 fL (80-100); NEUTROPHILS ABSOLUTE AUTO 4.37 K/mm3 (1.96-9.15); NEUTROPHILS PERCENT AUTO 59 % (41-73); NRBC ABSOLUTE 0.00 K/mm3 (0.00-0.02); NRBC Auto 0.0 /100 WBC (0.0-0.2); Platelet Count 274 K/mm3 (150-400); RDW Coefficient Variation 15.6 % (11.7-14.2); RDW Standard Deviation 48.7 fL (35.1-46.3)
[2025-03-31 06:23] LABS: Anion Gap 13.0 mmol/L (3-11); Blood Urea Nitrogen 35.0 mg/dL (8-24); CO2, Blood 25.0 mmol/L (21-32); Calcium, Blood 8.4 mg/dL (8.5-10.1); Chloride, Blood 93.0 mmol/L (98-108); Creatinine, Blood 3.72 mg/dL (0.40-1.00); Glucose, Blood 234.0 mg/dL (70-99); Potassium, Blood 3.8 mmol/L (3.5-5.5); Sodium, Blood 127.0 mmol/L (136-145)
[2025-03-31 07:15] VITALS: BP 139/74
[2025-03-31] MEDS ORDERED: Insulin Human Lispro 100 Units/ML 3ML Syringe SC SCH (08:00)
[2025-03-31 11:53] VITALS: BP 118/61
[2025-03-31] MEDS ORDERED: Epoetin Alfa-EPBX 4,000 UNIT/ML 1ML Vial IV ONE (13:25)
[2025-03-31 16:15] VITALS: BP 116/65
--- NOTE | 2025-03-31 16:56 | NUR ---
SHIFT SUMMARY: PER DR. POMPA (IR) GARETH AV GRAFT THROMBECTOMY WAS DONE YESTERDAY, FLOW WAS RESTORED WITHIN THE GRAFT AND IT'S OKAY TO ACCESS FOR DIALYSIS. PER DR. EPSTEIN TO KEEP BRIE CHEST PERM CATH FOR NOW AND WILL BE DC'D OUTPT IN 2 WEEKS. PATIENT RECEIVED SCHEDULED MEDS PER EMAR. PATIENT MEDICATED FOR L HIP/BACK PAIN PER EMAR c MOD EFFECT. PATIENT HAS MOD APPETITE, PUREWICK IN PLACED FOR INCONTINENT VOID. PATIENT DENIES CP/PRESSURE, SOB, N/V AND DIZZINESS. PATIENT ON TELE, SR HR IN THE 90'S BPM. PIV DC'D. PATIENT HAS HAD NO NEW CONCERN OR DENIES ANY COMPLAINTS THIS SHIFT. PATIENT DISCHARGE HOME. DISCHARGE INSTRUCTIONS PACKET GIVEN TO PATIENT. PATIENT EDUCATED ON ADMITTING DX'S OF AV GRAFT THROMBOSIS, S/S, TX, RESUME SCHEDULED DIALYSIS M/W/F, F/U c PCP AND NEPHROLOGY. PATIENT AND SPOUSE VERBALIZED UNDERSTANDING AND NO FURTHER QUESTIONS. PATIENT HAS HAD NO NEW RX ORDERED. ALL PERSONAL BELONGINGS WERE SENT c PATIENT. PATIENT LEFT THE ROOM AT 1705, TRANSPORTED VIA .
== END 2025-03-31 17:05 | disposition home health service (06) | DRG 270 ==
LOC: ER 11:30 → MEDS 11:31
PROVIDERS: Emergency Medicine; Nurse Practitioner Acute Care; ADMIT Student in an Organized Health Care Education/Training Program
PROC: 03C Upper Arteries, Extirpation (ICD-10-PCS; principal; 2025-03-29)
PROC: 5A1D70Z Performance of Urinary Filtration, Intermittent, Less than 6 Hours Per Day (ICD-10-PCS; 2025-03-31)
DX: T82.868A Thrombosis due to vascular prosthetic devices, implants and grafts, initial encounter (principal); N18.6 End stage renal disease; E87.1 Hypo-osmolality and hyponatremia; I12.0 Hypertensive chronic kidney disease with stage 5 chronic kidney disease or end stage renal disease; Y84.1 Kidney dialysis as the cause of abnormal reaction of the patient, or of later complication, without mention of misadventure at the time of the procedure; D63.1 Anemia in chronic kidney disease; I25.10 Atherosclerotic heart disease of native coronary artery without angina pectoris; E11.22 Type 2 diabetes mellitus with diabetic chronic kidney disease; J44.9 Chronic obstructive pulmonary disease, unspecified; F32.A Depression, unspecified; M19.90 Unspecified osteoarthritis, unspecified site; M54.9 Dorsalgia, unspecified; G89.29 Other chronic pain; G47.33 Obstructive sleep apnea (adult) (pediatric); K21.9 Gastro-esophageal reflux disease without esophagitis; Z88.0 Allergy status to penicillin; Z88.1 Allergy status to other antibiotic agents; Z88.8 Allergy status to other drugs, medicaments and biological substances; Z99.2 Dependence on renal dialysis; Z86.73 Personal history of transient ischemic attack (TIA), and cerebral infarction without residual deficits; Z95.5 Presence of coronary angioplasty implant and graft; Z91.048 Other nonmedicinal substance allergy status; Z98.51 Tubal ligation status; Z87.891 Personal history of nicotine dependence
CPT/HCPCS: 36415; 76937; 80048; 80053; 82947; 83735; 85025; 93005; 93010; 93971; 94760; 96372; 99152; 99153; 99285-25; A9270; C1725; C1750; C1769; C1887; C1894; G0378; J1644; J2250; J3010; J7030; J7040; Q5106; Q9967

== ENCOUNTER 2025-07-31 19:54 | Emergency (ER) | payer MEDICARE, OTHER ==
[~2025-07-31] VITALS: Ht 160 cm; Wt 77.1 kg
[2025-07-31 20:32] LABS: BASOPHILS ABSOLUTE AUTO 0.08 K/mm3 (0.00-0.23); BASOPHILS PERCENT AUTO 1 % (0-2); EOSINOPHILS ABSOLUTE AUTO 0.02 K/mm3 (0.00-0.68); EOSINOPHILS PERCENT AUTO 0 % (0-6); IMMATURE GRAN ABSOLUTE AUTO 0.13 K/mm3 (0.00-0.10); IMMATURE GRAN PERCENT AUTO 1 % (0-1); LYMPHOCYTES ABSOLUTE AUTO 0.67 K/mm3 (0.84-5.20); LYMPHOCYTES PERCENT AUTO 6 % (21-46); MONOCYTES ABSOLUTE AUTO 0.55 K/mm3 (0.16-1.47); MONOCYTES PERCENT AUTO 5 % (4-13); Mean Corpuscular HGB Conc 31.8 g/dL (31.5-36.5); Mean Corpuscular Volume 92 fL (80-100); NEUTROPHILS ABSOLUTE AUTO 9.84 K/mm3 (1.96-9.15); NEUTROPHILS PERCENT AUTO 87 % (41-73); NRBC ABSOLUTE 0.00 K/mm3 (0.00-0.02); NRBC Auto 0.0 /100 WBC (0.0-0.2); Platelet Count 426 K/mm3 (150-400); RDW Coefficient Variation 15.8 % (11.7-14.2); RDW Standard Deviation 51.7 fL (35.1-46.3)
[2025-07-31 20:42] LABS: Hematocrit 17.3 % (33.0-51.0); Hemoglobin 5.5 g/dL (11.5-16.0)
[2025-07-31 21:00] LABS: Alanine Aminotransfer (ALT/SGP 14.0 U/L (12-78); Albumin, Blood 2.7 g/dL (3.4-5.0); Albumin/Globulin Ratio 1.0 (0.8-1.8); Anion Gap 15.0 mmol/L (3-11); Aspartate Aminotrans (AST/SGOT 12.0 U/L (12-37); Bilirubin, Total 0.4 mg/dL (0.1-1.0); Blood Urea Nitrogen 46.0 mg/dL (8-24); CO2, Blood 26.0 mmol/L (21-32); Calcium, Blood 9.0 mg/dL (8.5-10.1); Chloride, Blood 92.0 mmol/L (98-108); Creatinine, Blood 3.05 mg/dL (0.40-1.00); Globulin, Blood 2.8 g/dL (2.2-4.0); Glucose, Blood 330.0 mg/dL (70-99); Potassium, Blood 4.4 mmol/L (3.5-5.5); Sodium, Blood 129.0 mmol/L (136-145); Total Protein, Blood 5.5 g/dL (6.4-8.2)
[2025-07-31 21:23] LABS: Prothrombin Time Results 11.4 Sec (9.7-11.5)
[2025-07-31] MEDS ORDERED: Morphine Sulfate 4 MG/1 ML Injection IV ONE (21:45)
[2025-07-31] MEDS ORDERED: NS 1,000 ML IV SCH (23:00)
[2025-07-31] MEDS ORDERED: Pantoprazole Sodium 40 MG Injection IV ONE (23:25)
[2025-07-31] MEDS ORDERED: HYDROmorphone HCl/Pf 1MG SYR IV ONE (23:50)
[2025-08-01 01:15] VITALS: BP 107/54
== END 2025-08-01 01:15 | disposition short-term general hospital (02) ==
LOC: ER 19:54
PROVIDERS: Student in an Organized Health Care Education/Training Program
DX: K92.2 Gastrointestinal hemorrhage, unspecified (principal); E11.22 Type 2 diabetes mellitus with diabetic chronic kidney disease; N18.6 End stage renal disease; J44.9 Chronic obstructive pulmonary disease, unspecified; I50.9 Heart failure, unspecified; K21.9 Gastro-esophageal reflux disease without esophagitis; M19.90 Unspecified osteoarthritis, unspecified site; Z88.0 Allergy status to penicillin; Z88.8 Allergy status to other drugs, medicaments and biological substances; Z79.899 Other long term (current) drug therapy; Z79.4 Long term (current) use of insulin; Z79.82 Long term (current) use of aspirin; Z87.891 Personal history of nicotine dependence
CPT/HCPCS: 36430; 74177; 80053; 82272; 83690; 85025; 85610; 85730; 86850; 86900; 86901; 86923; 93005; 93010; 96374-59; 96375; 99285-25; J1171; J2270; J2470; J7030; P9016; Q9967